=== PATIENT | female | born 1985 | race Caucasian/White ===

== ENCOUNTER → 2018-07-30 | Outpatient (CLI) | payer BC, MEDICAID, SELFPAY | LOC: M OUTALCOH 08:00 | PROVIDERS: ATTEND Psychiatry & Neurology Psychiatry | DX: Z13.9 Encounter for screening, unspecified (principal); F10.20 Alcohol dependence, uncomplicated ==

== ENCOUNTER 2018-08-10 08:01 | Outpatient (RCR) | payer MEDICAID, SELFPAY | END 2018-08-16 | LOC: M OUTALCOH 08:01 | PROVIDERS: ATTEND Psychiatry & Neurology Psychiatry | DX: F10.20 Alcohol dependence, uncomplicated (principal); F17.200 Nicotine dependence, unspecified, uncomplicated ==

== ENCOUNTER 2018-09-28 09:25 | Emergency (ER) | payer BC, OTHER ==
[~2018-09-28] VITALS: Ht 162.6 cm; Wt 62.3 kg
[2018-09-28 10:12] LABS: HEMATOCRIT 46.3 % (36.0-47.0); HEMOGLOBIN 15.7 g/dl (12.0-15.5); MEAN CORPUSCULAR HEMOGLOBIN 31.5 pg (27.0-33.0); MEAN CORPUSCULAR HGB CONC 33.9 g/dl (32.0-36.5); PLATELET COUNT, AUTOMATED 284 10^3/uL (150-450); RED BLOOD COUNT 4.98 10^6/uL (4.00-5.40)
[2018-09-28 10:30] LABS: AMPHETAMINES LEVEL URINE NEGATIVE (NEGATIVE); BARBITURATES URINE NEGATIVE (NEGATIVE); BENZODIAZEPINES URINE NEGATIVE (NEGATIVE); CANNABINOIDS URINE NEGATIVE (NEGATIVE); COCAINE METABOLITE URINE NEGATIVE (NEGATIVE); METHADONE URINE NEGATIVE (NEGATIVE); OPIATES URINE NEGATIVE (NEGATIVE); PHENCYCLIDINE URINE NEGATIVE (NEGATIVE)
[2018-09-28 11:05] LABS: HCG, SERUM QUALITATIVE NEGATIVE (NEGATIVE)
[2018-09-28 11:20] LABS: ALBUMIN 4.3 GM/DL (3.2-5.2); ALT/SGPT 38 U/L (12-78); BILIRUBIN,DIRECT 0.4 MG/DL (0.0-0.2); BILIRUBIN,TOTAL 1.6 MG/DL (0.2-1.0); BLOOD UREA NITROGEN 6 MG/DL (7-18); CALCIUM LEVEL 9.4 MG/DL (8.5-10.1); CARBON DIOXIDE LEVEL 34 MEQ/L (21-32); CHLORIDE LEVEL 104 MEQ/L (98-107); CREATININE FOR GFR 0.66 MG/DL (0.55-1.30); GLOMERULAR FILTRATION RATE > 60.0 (>60); GLUCOSE, FASTING 87 MG/DL (70-100); POTASSIUM SERUM 3.6 MEQ/L (3.5-5.1); SALICYLATE LEVEL < 1.7 MG/DL (5.0-30.0); SODIUM LEVEL 140 MEQ/L (136-145); TOTAL PROTEIN 7.7 GM/DL (6.4-8.2)
[2018-09-28 11:21] LABS: ACETAMINOPHEN LEVEL < 2.0 UG/ML (10.0-30.0); ETHYL ALCOHOL (ETHANOL) < 0.003 % (0.000-0.010)
[2018-09-28 13:29] VITALS: BP 131/73
== END 2018-09-28 13:31 | disposition home or self-care (01) ==
LOC: M ED 09:25
DX: F32.9 Major depressive disorder, single episode, unspecified (principal); F10.10 Alcohol abuse, uncomplicated; I10 Essential (primary) hypertension; Z98.84 Bariatric surgery status; Z88.7 Allergy status to serum and vaccine; Z88.6 Allergy status to analgesic agent; Z88.2 Allergy status to sulfonamides; Z88.8 Allergy status to other drugs, medicaments and biological substances
CPT/HCPCS: 80048; 80076; 80307; 84443; 84703; 85027; 99284; G0480

== ENCOUNTER → 2018-09-28 | Outpatient (CLI) | payer BC, OTHER | LOC: M OUTALCOH 07:58 | PROVIDERS: ATTEND Psychiatry & Neurology Psychiatry | DX: F10.20 Alcohol dependence, uncomplicated (principal) ==

== ENCOUNTER 2018-10-16 07:54 | Outpatient (RCR) | payer BC, OTHER | END 2018-10-17 | LOC: M OUTALCOH 07:54 | PROVIDERS: ATTEND Psychiatry & Neurology Psychiatry | DX: F10.20 Alcohol dependence, uncomplicated (principal); F17.200 Nicotine dependence, unspecified, uncomplicated | CPT/HCPCS: 90832; H0050 ==

== ENCOUNTER 2018-11-13 08:45 | Outpatient (RCR) | payer BC, OTHER | END 2018-11-16 | LOC: M OUTALCOH 08:45 | PROVIDERS: ATTEND Psychiatry & Neurology Psychiatry | DX: F10.20 Alcohol dependence, uncomplicated (principal); F17.200 Nicotine dependence, unspecified, uncomplicated ==

== ENCOUNTER 2019-01-05 07:30 | Inpatient (IN) | payer OTHER ==
[2019-01-05] VITALS (9 sets, daily range): BP systolic 108–152; BP diastolic 58–90
[~2019-01-05] VITALS: Ht 167.6 cm; Wt 66.4 kg
[2019-01-05] MEDS ORDERED: NS 1,000 ML IV ONE ×2 (07:45→11:45)
--- NOTE | 2019-01-05 07:55 | ECGEPIP ---
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
[2019-01-05 08:09] LABS: BASO # 0.1 10^3/uL (0.0-0.2); BASO % 0.8 % (0.0-1.0); HEMATOCRIT 42.3 % (36.0-47.0); HEMOGLOBIN 14.2 g/dl (12.0-15.5); LYMPH # 0.6 10^3/uL (1.5-5.0); LYMPH % 7.8 % (24.0-44.0); MEAN CORPUSCULAR HEMOGLOBIN 30.9 pg (27.0-33.0); MEAN CORPUSCULAR HGB CONC 33.6 g/dl (32.0-36.5); MEAN CORPUSCULAR VOLUME 92.2 fl (80.0-96.0); MONO # 0.2 10^3/uL (0.0-0.8); MONO % 2.8 % (0.0-5.0); NEUTROPHILS % 88.1 % (36.0-66.0); PLATELET COUNT, AUTOMATED 306 10^3/uL (150-450); RED BLOOD COUNT 4.59 10^6/uL (4.00-5.40)
[2019-01-05 08:27] LABS: HCG, SERUM QUALITATIVE NEGATIVE (NEGATIVE)
[2019-01-05 08:50] LABS: BLOOD UREA NITROGEN 10 MG/DL (7-18); CARBON DIOXIDE LEVEL 22 MEQ/L (21-32); CHLORIDE LEVEL 107 MEQ/L (98-107); CREATININE FOR GFR 0.97 MG/DL (0.55-1.30); GLOMERULAR FILTRATION RATE > 60.0 (>60); GLUCOSE, FASTING 136 MG/DL (70-100); POTASSIUM SERUM 4.4 MEQ/L (3.5-5.1); SODIUM LEVEL 143 MEQ/L (136-145)
[2019-01-05 08:51] LABS: ACETAMINOPHEN LEVEL < 2.0 UG/ML (10.0-30.0); ALBUMIN 3.9 GM/DL (3.2-5.2); ALT/SGPT 25 U/L (12-78); BILIRUBIN,DIRECT 0.2 MG/DL (0.0-0.2); CALCIUM LEVEL 8.9 MG/DL (8.5-10.1); CPK CREATINE PHOSPHOKINASE 1445 U/L (26-192); SALICYLATE LEVEL 1.9 MG/DL (5.0-30.0); TOTAL PROTEIN 7.3 GM/DL (6.4-8.2)
[2019-01-05] MEDS ORDERED: TRAZ150T90 PO (09:20)
[2019-01-05] MEDS ORDERED: ACET1TAB55 PO (09:20)
[2019-01-05] MEDS ORDERED: PARO20TA3 PO (09:20)
[2019-01-05] MEDS ORDERED: LIDOCAINE 2% W/EPIN INJ 20ML **PRES FREE INJ ONE (10:45)
[2019-01-05] MEDS ORDERED: THIAMINE HCL 200 MG/2 ML VIAL (J3411) IM ONE (12:00)
[2019-01-05 12:10] LABS: MAGNESIUM LEVEL 1.9 MG/DL (1.8-2.4)
--- NOTE | 2019-01-05 12:15 | REP ---
CT brain: 01/05/2019. Indication: Stroke. Comparison: None. Technique: Unenhanced axial CT images of the brain were obtained from skull base to vertex. Findings: There is no acute intracranial hemorrhage, acute cortical infarction, mass effect or hydrocephalous. Impression: There is no acute intracranial process. Electronically Signed by Lavell Brown DO 01/05/2019 12:06 P
[2019-01-05] MEDS ORDERED: DISU250T PO (12:17)
[2019-01-05] MEDS ORDERED: CLON0.2T PO (12:17)
[2019-01-05] MEDS ORDERED: [UNRECOGNIZED DRUG - CODE] PO (12:17)
[2019-01-05] MEDS ORDERED: AMOX500C PO (12:17)
[2019-01-05] MEDS ORDERED: PERI12LIQ PO (12:17)
[2019-01-05] MEDS ORDERED: ADACEL/BOOSTRIX VACCINE (DIPHTH/PERTUSS/ACELL/TETANUS)0.5ML SYR (90715) IM ONE (12:30)
[2019-01-05] MEDS ORDERED: LORazepam 2 MG/ML VIAL (J2060) IV STA ×3 (12:34→16:56)
[2019-01-05] MEDS: NS 1,000 ML IV SCH ×2 (14:08→21:00)
--- NOTE | 2019-01-05 14:52 | HPEPDOC ---
[facility] Medical History & Physical Date of Admission Jan 05, 2019 Date of Service: Jan 05, 2019 Attending Physician: ADALBERTO ARBOLEDA MD History and Physical CHIEF COMPLAINT: Drug overdose HISTORY OF PRESENT ILLNESS: 33-year-old female with past medical history of anxiety, depression, IV drug use (heroin), alcohol abuse, is brought from home after overdosing on trazodone. Patient was alone overnight, found by family in the morning, currently very confused and slow to answer in the ED, unable to p rovide any useful information. History and information obtained from parents at bedside, who report that patient has had thoughts of suicide in the past, but no prior attempts, they found her altered and lethargic at home and noticed her trazodone bottle was missing pills. Of note, patient is also on Paxil, no pallor counting her pills in the ED, she has been taking her Paxil. As per parents patient was also binge drinking over the past couple nights, was sober for months prior to that, has been prescribed Antabuse as well. In the ED, patient is found to be febrile, hyperreflexic, mildly tachycardic and initially hypertensive. Poison control was contacted, recommend IV fluids, benzodiazepines and cyproheptadine if worsening. Patient also cut her right wrist, reportedly superficial and sutured by ED staff. PAST MEDICAL HISTORY: 1. Polysubstance abuse. 2. Anxiety/Depression. 3. Suicide attempt. PAST SURGICAL HISTORY: 1. Gastric bypass. SOCIAL HISTORY: Current smoker. Drinks alcohol. History of his substance use, heroin, and others unknown to relatives FAMILY HISTORY: No family history of cancer or heart disease ALLERGIES: Please see below. HOME MEDICATIONS: Please see below. PHYSICAL EXAMINATION: VITAL SIGNS: Please see below. GENERAL: No distress HEENT: Normocephalic, atraumatic, dry mucous membranes NECK: Supple CARDIOVASCULAR EXAMINATION: S1, S2, no murmurs RESPIRATORY EXAMINATION: Clear to auscultation, no wheezing ABDOMINAL EXAMINATION: Soft, nontender, nondistended, positive bowel sounds EXTREMITIES: Range of motion intact SKIN: No rash NEUROLOGICAL EXAMINATION: no focal deficits, hyperreflexic PSYCHIATRIC EXAMINATION: Lethargic LABORATORY DATA: See below. IMAGING: CT head negative for acute pathology MICROBIOLOGY: Please see below. ASSESSMENT: 33-year-old female with history of IV drug use, anxiety, depression, alcohol abuse, overdosed on trazodone is being admitted for serotonin syndrome. . PLAN: 1. Serotonin syndrome. Patient on Paxil and took possibly 15-20 tabs of trazodone. Hyperreflexic on examination, afebrile, mildly tachycardic initially hypertensive; concern is high for serotonin syndrome, poison control was contacted, recommend benzodiazepines for symptom control with cyproheptadine if worsening. QTC 456, monitor in the ICU setting. Gave Ativan 2 mg IV 1 in the ED, continue Ativan when necessary. Cyproheptadine 8 mg 3 times a day, IV fluids 2. Alcohol abuse Binge drinking over the past 48 hours, alcohol level elevated, [facility] protocol. Multivitamins, folic acid, thiamine 3. Anxiety/depression. Suicide attempt, will consult psychiatry when medically stable. DVT prophylaxis: Heparin subcutaneous GI prophylaxis: Not needed Vital Signs Vital Signs Date Time Temp Pulse Resp B/P (MAP) Pulse Ox O2 Delivery O2 Flow Rate FiO2 01/05/19 14:15 91 16 136/70 (92) 98 01/05/19 12:33 100.3 01/05/19 09:49 Room Air Laboratory Data Labs 24H Laboratory Tests 2 01/05/19 07:53: Immature Granulocyte % (Auto) 0.5, Neutrophils (%) (Auto) 88.1H, Lymphocytes (%) (Auto) 7.8L, Monocytes (%) (Auto) 2.8, Eosinophils (%) (Auto) 0.0, Basophils (%) (Auto) 0.8, Neutrophils # (Auto) 7.0, Lymphocytes # (Auto) 0.6L, Monocytes # (Auto) 0.2, Eosinophils # (Auto) 0.0, Basophils # (Auto) 0.1, Nucleated Red Blood Cells % (auto) 0.0, Anion Gap 14, Glomerular Filtration Rate > 60.0, Calcium Level 8.9, Magnesium Level 1.9, Total Bilirubin 1.0, Direct Bilirubin 0.2, Aspartate Amino Transf (AST/SGOT) 51H, Alanine Aminotransferase (ALT/SGPT) 25, Alkaline Phosphatase 73, Total Creatine Kinase 1445H, Total Protein 7.3, Albumin 3.9, Albumin/Globulin Ratio 1.15, Thyroid Stimulating Hormone (TSH) 1.440, Human Chorionic Gonadotropin, Qual NEGATIVE, Salicylates Level 1.9L, Acetaminophen Level < 2.0L, Ethyl Alcohol Level 0.020H 01/05/19 08:52: Bedside Glucose (Misc Panel) 112H CBC/BMP Laboratory Tests 01/05/19 07:53 Home Medications Scheduled Amoxicillin (Amoxicillin) 500 Mg Capsule, 500 MG PO TID FILLED 12/30/18 FOR 10 DAYS Chlorhexidine Gluconate (Chlorhexidine Gluconate) 473 Ml Mouthwash, 15 ML PO BID FILLED 12/30/18 FOR 7 DAYS Clonidine HCl (Clonidine HCl) 0.2 Mg Tablet, 0.2 MG PO QHS Disulfiram (Disulfiram) 250 Mg Tablet, 250 MG PO DAILY Norethindrone-Ethinyl Estrad (Pirmella 7-7-7-28 Tablet) 1 Each Tablet, 1 TAB PO DAILY Paroxetine HCl (Paroxetine HCl) 20 Mg Tablet, 20 MG PO DAILY Trazodone HCl (Trazodone HCl) 150 Mg Tablet, 150 MG PO QHS Scheduled PRN Acetaminophen (Acetaminophen) 325 Mg Tablet, 650 MG PO Q6H PRN for PAIN Allergies Coded Allergies: Influenza Virus Vaccines (Verified Allergy, Unknown, 09/28/18) Sulfa (Sulfonamide Antibiotics) (Verified Allergy, Unknown, 09/28/18) oseltamivir (Verified Adverse Reaction, Intermediate, liver failure, 01/05/19) NSAIDS (Non-Steroidal Anti-Inflamma (Verified Adverse Reaction, Mild, gastric bypass, 09/28/18) A-FIB/CHADSVASC A-FIB History Current/History of A-Fib/PAF?: No ADALBERTO ARBOLEDA MD Jan 05, 2019 14:52
[2019-01-05] MEDS ORDERED: LORazepam 2 MG/ML VIAL (J2060) As Ordered ONE (17:12)
[2019-01-05] MEDS: THIAMINE 100 MG TAB PO SCH (21:46)
[2019-01-05] MEDS: CHLORHEXIDINE GLUCONATE 0.12 % 15ML UDC (PERIDEX ORAL RINSE) SSP SCH (21:46)
[2019-01-05] MEDS: HEPARIN SOD (PORCINE) 5000 UNITS/ML VIAL SC SCH (21:46)
[2019-01-05] MEDS: CYPROHEPTADINE 4 MG TAB GT SCH (22:02)
[2019-01-06] VITALS (18 sets, daily range): BP systolic 111–157; BP diastolic 65–104
[2019-01-06 00:10] LABS: AMPHETAMINES LEVEL URINE NEGATIVE (NEGATIVE); BARBITURATES URINE NEGATIVE (NEGATIVE); BENZODIAZEPINES URINE NEGATIVE (NEGATIVE); CANNABINOIDS URINE NEGATIVE (NEGATIVE); COCAINE METABOLITE URINE NEGATIVE (NEGATIVE); METHADONE URINE NEGATIVE (NEGATIVE); OPIATES URINE NEGATIVE (NEGATIVE); PHENCYCLIDINE URINE NEGATIVE (NEGATIVE)
[2019-01-06] MEDS: NS 1,000 ML IV SCH ×2 (04:13→09:04)
[2019-01-06 05:21] LABS: HEMATOCRIT 35.1 % (36.0-47.0); MEAN CORPUSCULAR HEMOGLOBIN 30.3 pg (27.0-33.0); MEAN CORPUSCULAR HGB CONC 32.8 g/dl (32.0-36.5); MEAN CORPUSCULAR VOLUME 92.6 fl (80.0-96.0); PLATELET COUNT, AUTOMATED 211 10^3/uL (150-450); RED BLOOD COUNT 3.79 10^6/uL (4.00-5.40); WHITE BLOOD COUNT 6.3 10^3/uL (4.0-10.0)
[2019-01-06 05:25] LABS: HEMOGLOBIN 11.5 g/dl (12.0-15.5)
[2019-01-06 05:48] LABS: ALBUMIN 2.7 GM/DL (3.2-5.2); ALT/SGPT 22 U/L (12-78); BILIRUBIN,TOTAL 1.2 MG/DL (0.2-1.0); BLOOD UREA NITROGEN 10 MG/DL (7-18); CALCIUM LEVEL 8.2 MG/DL (8.5-10.1); CARBON DIOXIDE LEVEL 27 MEQ/L (21-32); CHLORIDE LEVEL 115 MEQ/L (98-107); CREATININE FOR GFR 0.78 MG/DL (0.55-1.30); GLOMERULAR FILTRATION RATE > 60.0 (>60); GLUCOSE, FASTING 90 MG/DL (70-100); MAGNESIUM LEVEL 1.9 MG/DL (1.8-2.4); POTASSIUM SERUM 3.9 MEQ/L (3.5-5.1); SODIUM LEVEL 146 MEQ/L (136-145); TOTAL PROTEIN 5.6 GM/DL (6.4-8.2)
[2019-01-06] MEDS: CYPROHEPTADINE 4 MG TAB GT SCH (05:50)
[2019-01-06] MEDS: HEPARIN SOD (PORCINE) 5000 UNITS/ML VIAL SC SCH ×3 (05:50→21:22)
[2019-01-06] MEDS ORDERED: LORazepam 2 MG/ML VIAL (J2060) IV STA ×2 (08:00→21:54)
[2019-01-06] MEDS ORDERED: LORazepam 2 MG TAB PO ONE (09:00)
[2019-01-06] MEDS: MULTIVITAMINS/MINERALS THERAP 1 TAB PO SCH (09:03)
[2019-01-06] MEDS: THIAMINE 100 MG TAB PO SCH ×2 (09:03→20:01)
[2019-01-06] MEDS: FOLIC ACID 1 MG TAB PO SCH (09:03)
[2019-01-06] MEDS: CHLORHEXIDINE GLUCONATE 0.12 % 15ML UDC (PERIDEX ORAL RINSE) SSP SCH ×2 (09:04→20:00)
[2019-01-06] MEDS ORDERED: MAGIC MOUTHWASH SUSPENSION BTL SSP PRN (10:00)
--- NOTE | 2019-01-06 11:52 | IPNPDOC ---
Date Seen The patient was seen on 01/06/19. Progress Note HISTORY OF PRESENT ILLNESS: 33-year-old female with past medical history of anxiety, depression, IV drug use (heroin), alcohol abuse, is brought from home after overdosing on trazodone. Patient was alone overnight, found by family in the morning, currently very confused and slow to answer in the ED, unable to provide any useful information. History and information obtained from parents at bedside, who report that patient has had thoughts of suicide in the past, but no prior attempts, they found her altered and lethargic at home and noticed her trazodone bottle was missing pills. Of note, patient is also on Paxil, no pallor counting her pills in the ED, she has been taking her Paxil. As per parents patient was also binge drinking over the past couple nights, was sober for months prior to that, has been prescribed Antabuse as well. In the ED, patient is found to be febrile, hyperreflexic, mildly tachycardic and initially hypertensive. Poison control was contacted, recommend IV fluids, benzodiazepines and cyproheptadine if worsening. Patient also cut her right wrist, reportedly superficial and sutured by ED staff. 01/06/2019 Patient minimally febrile overnight, seen in the morning. Alert and oriented 3, reporting mild pain at the wrist. Otherwise, without any complex at this time. She denies any shaking, sweating, agitation at this time. She wishes to eat, was able to shower herself in the morning. PHYSICAL EXAMINATION: VITAL SIGNS: Please see below. GENERAL: No distress HEENT: Normocephalic, atraumatic, dry mucous membranes NECK: Supple CARDIOVASCULAR EXAMINATION: S1, S2, no murmurs RESPIRATORY EXAMINATION: Clear to auscultation, no wheezing ABDOMINAL EXAMINATION: Soft, nontender, nondistended, positive bowel sounds EXTREMITIES: Range of motion intact SKIN: No rash NEUROLOGICAL EXAMINATION: Alert and oriented 3, no focal deficits PSYCHIATRIC EXAMINATION: Lethargic LABORATORY DATA: See below. IMAGING: CT head negative for acute pathology MICROBIOLOGY: Please see below. ASSESSMENT: 33-year-old female with history of IV drug use, anxiety, depression, alcohol abuse, overdosed on trazodone is being admitted for serotonin syndrome. PLAN: 1. Serotonin syndrome. Patient on Paxil and took possibly 15-20 tabs of trazodone. Treated with as needed IV Ativan, doing well in the morning, will discontinue cyproheptadine, remains on as needed Ativan for [facility] protocol. We'll consult psychiatry for suicide attempt as patient will likely be medically cleared by tomorrow. 2. Alcohol abuse Binge drinking over the past 48 hours, alcohol level elevated upon presentation, [facility] protocol. Multivitamins, folic acid, thiamine 3. Anxiety/depression. Suicide attempt, psychiatry consulted. DVT prophylaxis: Heparin subcutaneous GI prophylaxis: Not needed VS, I&O, 24H, Fishbone Vital Signs/I&O Vital Signs Date Time Temp Pulse Resp B/P (MAP) Pulse Ox O2 Delivery O2 Flow Rate FiO2 01/06/19 08:00 98.9 69 20 142/100 (114) 97 Room Air I&O- Last 24 Hours up to 6 AM 01/06/19 06:00 Intake Total 4325 ml Output Total 545 ml Balance 3780 ml Laboratory Data 24H LABS Laboratory Tests 2 01/05/19 16:12: Acetaminophen Level < 2.0L 01/05/19 23:10: Urine Opiates Screen NEGATIVE, Urine Methadone Screen NEGATIVE, Urine Barbiturates Screen NEGATIVE, Urine Phencyclidine Screen NEGATIVE, Urine Amphetamines Screen NEGATIVE, Urine Benzodiazepines Screen NEGATIVE, Urine Cocaine Metabolite Screen NEGATIVE, Urine Cannabinoids Screen NEGATIVE 01/06/19 05:02: Nucleated Red Blood Cells % (auto) 0.0, Anion Gap 4L, Glomerular Filtration Rate > 60.0, Calcium Level 8.2L, Magnesium Level 1.9, Total Bilirubin 1.2H, Aspartate Amino Transf (AST/SGOT) 41H, Alanine Aminotransferase (ALT/SGPT) 22, Alkaline Phosphatase 53, Total Protein 5.6#L, Albumin 2.7#L, Albumin/Globulin Ratio 0.93L CBC/BMP Laboratory Tests 01/06/19 05:02 ADALBERTO ARBOLEDA MD Jan 06, 2019 11:52
[2019-01-06] MEDS: LORazepam 2 MG TAB PO PRN ×3 (13:11→19:57)
[2019-01-06] MEDS: NICOTINE 14 MG/24 HR TRANSDERMAL TD SCH (14:45)
--- NOTE | 2019-01-06 15:27 | ECHO ---
DATE OF PROCEDURE: 01/05/2019 DATE OF : 1985 INPATIENT: ICU, Room 60808 REFERRING PHYSICIAN: Dr. Esther Billingsley INDICATION: Abnormal EKG. Cardiac dysrhythmia. MEASUREMENTS: 2-D Measurements: RV: 3.4 cm LV: 4.1 cm Septum: 1.0 cm Posterior wall: 0.9 cm Aortic root: 3.2 cm LA: 3.4 cm LVEF: 75% Doppler Measurements: AV: 1.6 m/s LVOT: 1.0 m/s LVOT diameter: 2.0 cm MV: E: 87, A: 68, EA ratio: 1.3 Early mitral deceleration time: 183 ms E prime: 10, A prime: 13, E/E prime ratio: 8.47 PV: 1.0 m/s Pulmonary artery acceleration time: 137 ms PASP: 17 mmHg IVC: 1.2 cm COMMENTS: Normal sinus rhythm without intraventricular conduction disturbance. M-mode and two-dimensional echocardiography was performed with pulsed, continuous wave, color flow and tissue Doppler studies. Normal left ventricular size, wall thickness and hyperkinetic wall motion. Normal left atrial size and Doppler assessment of LV diastolic function and estimated mean left atrial pressure. Normal right heart chamber sizes and motion and estimated pulmonary arterial pressure. Normal IVC size and collapse against an elevated central venous pressure. Normal appearing and functioning valvular structures. Normal aortic diameters. No apparent intracardiac mass or pericardial effusion.
[2019-01-06 16:32] LABS: CLOSTRIDIUM DIFFICILE PCR POSITIVE (NEGATIVE)
[2019-01-06] MEDS: FLUCONAZOLE 100 MG TAB PO SCH (18:12)
[2019-01-06] MEDS: VANCOMYCIN ORAL SOL 250MG/5ML ORAL SYRINGE PO SCH ×2 (19:57→23:05)
[2019-01-06] MEDS: PIRMELLA PO SCH (21:21)
[2019-01-07] VITALS (15 sets, daily range): BP systolic 132–147; BP diastolic 77–107
[2019-01-07] MEDS ORDERED: ACETAMINOPHEN TAB 650MG DOSE (2X325MG) PO PRN (02:45)
[2019-01-07] MEDS: HEPARIN SOD (PORCINE) 5000 UNITS/ML VIAL SC SCH ×3 (04:50→22:00)
[2019-01-07] MEDS: LORazepam 2 MG TAB PO PRN ×4 (04:50→21:05)
[2019-01-07] MEDS: VANCOMYCIN ORAL SOL 250MG/5ML ORAL SYRINGE PO SCH ×3 (05:06→17:08)
[2019-01-07 05:15] LABS: HEMATOCRIT 38.6 % (36.0-47.0); HEMOGLOBIN 12.4 g/dl (12.0-15.5); MEAN CORPUSCULAR HEMOGLOBIN 29.9 pg (27.0-33.0); MEAN CORPUSCULAR HGB CONC 32.1 g/dl (32.0-36.5); PLATELET COUNT, AUTOMATED 218 10^3/uL (150-450); RED BLOOD COUNT 4.15 10^6/uL (4.00-5.40); WHITE BLOOD COUNT 5.1 10^3/uL (4.0-10.0)
[2019-01-07 05:37] LABS: BLOOD UREA NITROGEN 5 MG/DL (7-18); CALCIUM LEVEL 8.4 MG/DL (8.5-10.1); CARBON DIOXIDE LEVEL 29 MEQ/L (21-32); CHLORIDE LEVEL 110 MEQ/L (98-107); CREATININE FOR GFR 0.67 MG/DL (0.55-1.30); GLOMERULAR FILTRATION RATE > 60.0 (>60); GLUCOSE, FASTING 79 MG/DL (70-100); PHOSPHORUS LEVEL 3.2 MG/DL (2.5-4.9); POTASSIUM SERUM 3.7 MEQ/L (3.5-5.1); SODIUM LEVEL 145 MEQ/L (136-145)
[2019-01-07] MEDS: CHLORHEXIDINE GLUCONATE 0.12 % 15ML UDC (PERIDEX ORAL RINSE) SSP SCH ×2 (08:33→20:47)
[2019-01-07] MEDS: FLUCONAZOLE 100 MG TAB PO SCH (08:33)
[2019-01-07] MEDS: FOLIC ACID 1 MG TAB PO SCH (08:34)
[2019-01-07] MEDS: NICOTINE 14 MG/24 HR TRANSDERMAL TD SCH (08:34)
[2019-01-07] MEDS: MULTIVITAMINS/MINERALS THERAP 1 TAB PO SCH (08:34)
[2019-01-07] MEDS: THIAMINE 100 MG TAB PO SCH ×2 (08:34→20:47)
[2019-01-07] MEDS ORDERED: POTASSIUM CHLORIDE 10 MEQ SR TABLET PO ONE (09:00)
[2019-01-07] MEDS ORDERED: LORazepam 2 MG/ML VIAL (J2060) IV ONE (09:15)
--- NOTE | 2019-01-07 11:40 | MHCRPDOC ---
[facility] Consultation Consultation New Patient Princess De La Rosa MRN: N/A Date of : N/A Date of Service: 01/07/2019 Chief Complaint Consultation for safety after overdose. History of Present Illness The patient, a 33-year-old woman, who recently was discharged from my addiction clinic where she was treated for alcoholism, presents after a significant overdose. The patient reports that she became increasingly depressed, stopped her Paxil and felt worse and after her boyfriend left for a week to go to a hunting trip she became increasingly depressed, relapsed on alcohol after she'd run out of disulfiram and began to contemplate suicide. She reports cutting her wrists and taking an overdose of trazodone in an attempt to kill herself. The patient reports that she has had increasing depression with hopelessness, loss of interest, insomnia. Recently started with [facility] for medication management. Psychosocial information is taken from my previous assessment and updated as appropriate. Review Of Systems Depression: As above. Anxiety: No change. Yoana: No change. Psychotic: No change. Trauma: No change. Borderline: No change. Past Psychiatric History Patient has no history of psychiatric admissions and is on Paxil, trazodone, which she has been non-compliant with. She's followed by [facility].The patient reports having a history of a suicide attempt with heroin in 2006 and some cutting behaviors when she was younger. Allergies Please see below. Family Psychiatric History The patient denies/is unaware any history of mental health history including addictions and suicide. Social History Patient currently lives with her parents who are supportive of her. She has a associate's degree, is unemployed, never with no children, no history of legal problems, denies any current trauma or abuse. Substance Abuse History The patient has a history of severe alcoholism with a binge drinking style as well as significant tobacco use. She reports using heroin in the past but denies consistent use of other drugs such as cocaine, stimulants and hallucinogens. Medical History History of asthma. Mental Status Examination General: Well dressed with good hygiene Speech: Spontaneous and fluid Thought processes: Linear and logical MSK: Smooth and coordinated gait, no signs of tremors or involuntary orofacial movements Thought content: Remorse Abstract reasoning, and computation: Intact Description of associations: Intact Description of abnormal or psychotic thoughts: Denies any suicidal or homicidal ideation. Denies any auditory or visual hallucinations. Does not appear to be responding to internal stimuli. Does not appear to be endorsing any bizarre or paranoid ideation. Judgment: fair Insight: fair Orientation: Alert and orientated 3 Cognition: Grossly normal Recent and remote memory: Intact Attention span and concentration: Mildly impaired Fund of knowledge: Adequate Mood: "okay" Affect: Dysthymic with a constricted range Diagnoses Unspecified depressive disorder. Alcohol use disorder, severe Tobacco use disorder, severe. Assessment and Plan Recommend inpatient admission, 9.39. Legals filled out. Will need another day of observation due to trazodone overdose and mild confusional state. Needs to be ambulatory before coming up. Continue one-to-one sitter. Disposition Inpatient psych. Time Spent 60 minutes. Vital Signs Vital Signs Date Time Temp Pulse Resp B/P (MAP) Pulse Ox O2 Delivery O2 Flow Rate FiO2 01/07/19 11:22 103 146/103 (117) 98 01/07/19 08:00 97.7 18 Room Air Laboratory Data 24H Labs Laboratory Tests 2 01/06/19 14:51: Clostridium difficile [id number] PRESUMPTIVE NEGATIVE, Clostridium difficile Toxin (PCR) POSITIVEA 01/07/19 04:43: Nucleated Red Blood Cells % (auto) 0.0, Anion Gap 6L, Glomerular Filtration Rate > 60.0, Calcium Level 8.4L, Phosphorus Level 3.2 Home Medications Current Medications Current Medications Medications (Trade) Dose Ordered Sig/Nette Route PRN Reason Start Time Stop Time Status Last Admin Dose Admin Acetaminophen (Tylenol Tab) 650 mg Q6HP PRN PO PAIN / FEVER 01/07/19 02:45 Chlorhexidine Gluconate (Peridex Oral Rinse) 15 ml BID SSP 01/05/19 21:00 01/07/19 08:33 Cyproheptadine HCl (Periactin) 8 mg Q8H GT 01/05/19 22:00 01/06/19 11:53 DC 01/06/19 05:50 Fluconazole (Diflucan) 100 mg DAILY PO 01/06/19 17:30 01/07/19 08:33 Folic Acid (Folic Acid) 1 mg DAILY PO 01/06/19 09:00 01/07/19 08:34 Heparin Sodium (Porcine) (Heparin) 5,000 units Q8H SC 01/05/19 22:00 01/07/19 04:50 Home Med (Med Rec Complete!) ASDIRECTED XX 01/05/19 12:30 01/05/19 12:22 DC Lactated Ringer's 1,000 ml @ 100 mls/hr Q10H IV 01/07/19 12:00 Lidocaine/ Diphenhydr/Alum/ Mg/Simeth (Magic Mouthwash) 5ML TIDP PRN SSP DISCOMFORT 01/06/19 10:00 01/06/19 17:25 DC Lorazepam (Ativan) 2 mg ASDIRECTED PRN PO SEE PROTOCOL 01/05/19 14:30 01/07/19 04:50 Lorazepam (Ativan) 2 mg STAT STAT IV 01/05/19 12:34 01/05/19 12:35 DC 01/05/19 12:42 Lorazepam (Ativan) 2 mg STAT STAT IV 01/05/19 15:26 01/05/19 15:28 DC 01/05/19 15:53 Lorazepam (Ativan) 2 mg STAT STAT IV 01/05/19 16:56 01/05/19 16:59 DC 01/05/19 17:15 Lorazepam (Ativan) 2 mg STAT STAT IV 01/06/19 08:00 01/06/19 08:01 Cancel Lorazepam (Ativan) 2 mg STAT STAT IV 01/06/19 21:54 01/06/19 21:56 DC 01/06/19 22:03 Miscellaneous (Unresolved Patient Own Med Order) SEE LABEL COMMENTS DAILY XX 01/06/19 09:00 01/06/19 21:56 DC 01/06/19 09:00 Multivitamins (Theragram-M) 1 tab DAILY PO 01/06/19 09:00 01/07/19 08:34 Nicotine (Nicoderm Cq 14mg) 1 patch DAILY TD 01/06/19 09:00 01/07/19 08:34 Patient Own Medication (Patient'S Own Med) NORETHIDRONE-ETHINYL eSTRADIOL (pRIMELLA 7-7-7) SAMAN... DAILY@2100 PO 01/06/19 21:00 01/06/19 21:21 Sodium Chloride 1,000 ml @ 90 mls/hr Q11H7M IV 01/05/19 11:45 01/06/19 17:23 DC 01/06/19 09:04 Thiamine HCl (Thiamine HCl) 100 mg BID PO 01/05/19 21:00 01/08/19 20:59 01/07/19 08:34 Vancomycin HCl (First-Vancomycin 50(Firvanq)- 250mg/5ml) 125 mg Q6H PO 01/06/19 18:00 01/07/19 05:06 Scheduled Amoxicillin (Amoxicillin) 500 Mg Capsule, 500 MG PO TID, (Reported) FILLED 12/30/18 FOR 10 DAYS Chlorhexidine Gluconate (Chlorhexidine Gluconate) 473 Ml Mouthwash, 15 ML PO BID, (Reported) FILLED 12/30/18 FOR 7 DAYS Clonidine HCl (Clonidine HCl) 0.2 Mg Tablet, 0.2 MG PO QHS, (Reported) Disulfiram (Disulfiram) 250 Mg Tablet, 250 MG PO DAILY, (Reported) Norethindrone-Ethinyl Estrad (Pirmella 7-7-7-28 Tablet) 1 Each Tablet, 1 TAB PO DAILY, (Reported) Paroxetine HCl (Paroxetine HCl) 20 Mg Tablet, 20 MG PO DAILY, (Reported) Trazodone HCl (Trazodone HCl) 150 Mg Tablet, 150 MG PO QHS, (Reported) Scheduled PRN Acetaminophen (Acetaminophen) 325 Mg Tablet, 650 MG PO Q6H PRN for PAIN, (Reported) Allergies Coded Allergies: Influenza Virus Vaccines (Verified Allergy, Unknown, 09/28/18) Sulfa (Sulfonamide Antibiotics) (Verified Allergy, Unknown, 09/28/18) sertraline (Verified Adverse Reaction, Severe, suicidal ideation and nightmares, 01/08/19) oseltamivir (Verified Adverse Reaction, Intermediate, liver failure, 01/05/19) NSAIDS (Non-Steroidal Anti-Inflamma (Verified Adverse Reaction, Mild, gastric bypass, 09/28/18) RAJINDER ARRIAGA DO Jan 07, 2019 11:40
[2019-01-07] MEDS: LR 1,000 ML IV SCH ×2 (11:55→21:06)
--- NOTE | 2019-01-07 18:07 | IPNPDOC ---
Date Seen The patient was seen on 01/07/19. Progress Note 33-year-old female with past medical history of anxiety, depression, IV drug use (heroin), alcohol abuse, is brought from home after overdosing on trazodone. Patient was alone overnight, found by family in the morning, currently very confused and slow to answer in the ED, unable to provide any useful information. History and information obtained from parents at bedside, who report that joss ward has had thoughts of suicide in the past, but no prior attempts, they found her altered and lethargic at home and noticed her trazodone bottle was missing pills. Of note, patient is also on Paxil, no pallor counting her pills in the ED, she has been taking her Paxil. As per parents patient was also binge drinking over the past couple nights, was sober for months prior to that, has been prescribed Antabuse as well. In the ED, patient is found to be febrile, hyperreflexic, mildly tachycardic and initially hypertensive. Poison control was contacted, recommend IV fluids, benzodiazepines and cyproheptadine if worsening. Patient also cut her right wrist, reportedly superficial and sutured by ED s tafakbar. 01/06/2019 Patient minimally febrile overnight, seen in the morning. Alert and oriented 3, reporting mild pain at the wrist. Otherwise, without any complex at this time. She denies any shaking, sweating, agitation at this time. She wishes to eat, was able to shower herself in the morning. 01/07/2019 Patient much more alert and awake today, back to her baseline, without any complaints at this time. She required an additional dose of IV Ativan overnight. Patient is tolerating diet, found to be C. difficile positive, evaluated by psychiatry, possible transfer to inpatient mental health unit tomorrow. PHYSICAL EXAMINATION: VITAL SIGNS: Please see below. GENERAL: No distress HEENT: Normocephalic, atraumatic, dry mucous membranes NECK: Supple CARDIOVASCULAR EXAMINATION: S1, S2, no murmurs RESPIRATORY EXAMINATION: Clear to auscultation, no wheezing ABDOMINAL EXAMINATION: Soft, nontender, nondistended, positive bowel sounds EXTREMITIES: Range of motion intact SKIN: No rash NEUROLOGICAL EXAMINATION: Alert and oriented 3, no focal deficits PSYCHIATRIC EXAMINATION: Lethargic LABORATORY DATA: See below. IMAGING: CT head negative for acute pathology MICROBIOLOGY: Please see below. ASSESSMENT: year-old female with history of IV drug use, anxiety, depression, alcohol abuse, overdosed on trazodone is being admitted for serotonin syndrome. PLAN: 1. Serotonin syndrome. Patient on Paxil and took possibly 15-20 tabs of trazodone. Treated with as needed IV Ativan, resolved. Evaluate by psychiatry, will be going to inpatient mental health unit when medically stable, likely tomorrow. 2. Alcohol abuse Binge drinking over the past 48 hours, alcohol level elevated upon presentation, requiring multiple doses of benzodiazepines as per [facility] protocol. Multivitamins, folic acid, thiamine 3. Anxiety/depression. Suicide attempt, psychiatry consulted. 4. C. difficile Was taking outpatient antibiotics after tooth extraction, started on vancomycin oral 125 mg every 6 hours. DVT prophylaxis: Heparin subcutaneous GI prophylaxis: Not needed VS, I&O, 24H, Fishbone Vital Signs/I&O Vital Signs Date Time Temp Pulse Resp B/P (MAP) Pulse Ox O2 Delivery O2 Flow Rate FiO2 01/07/19 15:15 123 147/107 01/07/19 15:12 98 Room Air 01/07/19 08:00 97.7 18 I&O- Last 24 Hours up to 6 AM 01/07/19 06:00 Intake Total 3560 ml Output Total 3600 ml Balance -40 ml Laboratory Data 24H LABS Laboratory Tests 2 01/07/19 04:43: Nucleated Red Blood Cells % (auto) 0.0, Anion Gap 6L, Glomerular Filtration Rate > 60.0, Calcium Level 8.4L, Phosphorus Level 3.2 CBC/BMP Laboratory Tests 01/07/19 04:43 ADALBERTO ARBOLEDA MD Jan 07, 2019 18:07
[2019-01-07] MEDS: PIRMELLA PO SCH (20:47)
[2019-01-08] VITALS: BP 147/108
[2019-01-08] MEDS: VANCOMYCIN ORAL SOL 250MG/5ML ORAL SYRINGE PO SCH ×3 (00:32→12:11)
[2019-01-08] MEDS: LORazepam 2 MG TAB PO PRN ×2 (00:36→13:00)
[2019-01-08 02:00] VITALS: BP 144/99
[2019-01-08 02:40] VITALS: BP 144/99
[2019-01-08] MEDS ORDERED: diazePAM 2 MG TAB PO ONE (03:15)
[2019-01-08 04:00] VITALS: BP 135/94
[2019-01-08] MEDS ORDERED: ONDANSETRON 4MG/2ML VIAL (J2405) As Ordered ONE (04:08)
[2019-01-08] MEDS ORDERED: ONDANSETRON 4MG/2ML VIAL (J2405) IV ONE (04:15)
[2019-01-08 05:02] LABS: HEMATOCRIT 36.9 % (36.0-47.0); HEMOGLOBIN 12.4 g/dl (12.0-15.5); MEAN CORPUSCULAR HEMOGLOBIN 30.3 pg (27.0-33.0); MEAN CORPUSCULAR HGB CONC 33.6 g/dl (32.0-36.5); MEAN CORPUSCULAR VOLUME 90.2 fl (80.0-96.0); PLATELET COUNT, AUTOMATED 249 10^3/uL (150-450); RED BLOOD COUNT 4.09 10^6/uL (4.00-5.40); WHITE BLOOD COUNT 5.5 10^3/uL (4.0-10.0)
[2019-01-08 05:17] LABS: BLOOD UREA NITROGEN 7 MG/DL (7-18); CALCIUM LEVEL 8.5 MG/DL (8.5-10.1); CARBON DIOXIDE LEVEL 27 MEQ/L (21-32); CHLORIDE LEVEL 109 MEQ/L (98-107); CREATININE FOR GFR 0.76 MG/DL (0.55-1.30); GLOMERULAR FILTRATION RATE > 60.0 (>60); GLUCOSE, FASTING 84 MG/DL (70-100); MAGNESIUM LEVEL 1.8 MG/DL (1.8-2.4); SODIUM LEVEL 143 MEQ/L (136-145)
[2019-01-08] MEDS ORDERED: POTASSIUM CHLORIDE 10 MEQ SR TABLET PO ONE ×2 (05:45→18:00)
[2019-01-08] MEDS: HEPARIN SOD (PORCINE) 5000 UNITS/ML VIAL SC SCH (06:50)
[2019-01-08] MEDS: KCL 10MEQ/100ML SWI (KRUN) 10 MEQ in IV 1 EA IV SCH ×3 (06:51→10:09)
[2019-01-08 08:00] VITALS: BP 140/98
[2019-01-08] MEDS: MULTIVITAMINS/MINERALS THERAP 1 TAB PO SCH (08:30)
[2019-01-08] MEDS: THIAMINE 100 MG TAB PO SCH (08:30)
[2019-01-08] MEDS: LR 1,000 ML IV SCH (08:30)
[2019-01-08] MEDS: CHLORHEXIDINE GLUCONATE 0.12 % 15ML UDC (PERIDEX ORAL RINSE) SSP SCH (08:30)
[2019-01-08] MEDS: FLUCONAZOLE 100 MG TAB PO SCH (08:30)
[2019-01-08] MEDS: FOLIC ACID 1 MG TAB PO SCH (08:30)
[2019-01-08] MEDS: NICOTINE 14 MG/24 HR TRANSDERMAL TD SCH (08:30)
[2019-01-08] MEDS: MAG SULF 1GM/100ML (MAG RUN) 1 GM in IV 1 EA IV SCH ×2 (10:09→12:11)
[2019-01-08 12:00] VITALS: BP 135/96
--- NOTE | 2019-01-08 12:06 | DS.PDOC ---
Discharge Summary General Date of Admission Jan 05, 2019 at 14:16 Date of Discharge 01/08/2019 Attending Physician: ADALBERTO ARBOLEDA MD Discharge Summary PROCEDURES PERFORMED DURING STAY: None. ADMITTING DIAGNOSES: 1. Suicide attempt, trazodone overdose. DISCHARGE DIAGNOSES: 1. Suicide attempt, trazodone overdose, C. difficile, oral thrush. COMPLICATIONS/CHIEF COMPLAINT: Alcohol Abuse. HISTORY OF PRESENT ILLNESS: 33-year-old female with past medical history of alcohol abuse, IV drug use, anxiety/depression, was admitted for suicide attempt with slashing her right wrist and overdosing on trazodone. She was admitted to the ICU for serotonin syndrome, treated with benzodiazepines and cyproheptadine, improvement noted in 24-48 hours. She was subsequently treated for alcohol withdrawal with further oral and IV benzodiazepines as needed, per [facility] protocol, improving. Patient was also found to have C. difficile, recently took antibiotics in the outpatient setting after teeth extraction, started on oral vancomycin, patient will need to complete a 10 day course of 125 mg of oral vancomycin every 6 hours. Patient also found to have oral thrush, started on fluconazole, should complete a 7-10 day course. Patient evaluated by psychiatry, will be transferred to inpatient mental health unit later today, further care as per psychiatric department. HOSPITAL COURSE: As above. DISCHARGE MEDICATIONS: Please see below. ALLERGIES: Please see below. PHYSICAL EXAMINATION: VITAL SIGNS: Please see below. GENERAL: No distress HEENT: Normocephalic, atraumatic, moist mucous membranes NECK: Supple CARDIOVASCULAR EXAMINATION: S1, S2, no murmurs RESPIRATORY EXAMINATION: Clear to auscultation, no wheezing ABDOMINAL EXAMINATION: Soft, nontender, nondistended, positive bowel sounds EXTREMITIES: Range of motion intact SKIN: No rash NEUROLOGICAL EXAMINATION: Alert and oriented 3, no focal deficits PSYCHIATRIC EXAMINATION: Calm and cooperative LABORATORY DATA: Please see below. PROGNOSIS: Fair ACTIVITY: As tolerated. DIET: Regular DISCHARGE PLAN: Follow-up with psychiatrist in inpatient mental health unit, PCP after discharge. DISPOSITION: Inpatient mental health unit. DISCHARGE INSTRUCTIONS: 1. As above. DISCHARGE CONDITION: Stable. TIME SPENT ON DISCHARGE: Greater than 35 minutes. Vital Signs/I&Os Vital Signs Date Time Temp Pulse Resp B/P (MAP) Pulse Ox O2 Delivery O2 Flow Rate FiO2 01/08/19 08:00 96 140/98 01/08/19 08:00 98.0 16 97 Room Air I&O- Last 24 Hours up to 6 AM0 01/08/19 06:00 Intake Total 3700 ml Output Total 4105 ml Balance -405 ml Laboratory Data Labs 24H Laboratory Tests 2 01/08/19 04:38: Nucleated Red Blood Cells % (auto) 0.0, Anion Gap 7L, Glomerular Filtration Rate > 60.0, Calcium Level 8.5, Magnesium Level 1.8 CBC/BMP Laboratory Tests 01/08/19 04:38 Discharge Medications Scheduled Amoxicillin (Amoxicillin) 500 Mg Capsule, 500 MG PO TID, (Reported) FILLED 12/30/18 FOR 10 DAYS Chlorhexidine Gluconate (Chlorhexidine Gluconate) 473 Ml Mouthwash, 15 ML PO BID, (Reported) FILLED 12/30/18 FOR 7 DAYS Clonidine HCl (Clonidine HCl) 0.2 Mg Tablet, 0.2 MG PO QHS, (Reported) Disulfiram (Disulfiram) 250 Mg Tablet, 250 MG PO DAILY, (Reported) Norethindrone-Ethinyl Estrad (Pirmella 7-7-7-28 Tablet) 1 Each Tablet, 1 TAB PO DAILY, (Reported) Paroxetine HCl (Paroxetine HCl) 20 Mg Tablet, 20 MG PO DAILY, (Reported) Trazodone HCl (Trazodone HCl) 150 Mg Tablet, 150 MG PO QHS, (Reported) Scheduled PRN Acetaminophen (Acetaminophen) 325 Mg Tablet, 650 MG PO Q6H PRN for PAIN, (Reported) Allergies Coded Allergies: Influenza Virus Vaccines (Verified Allergy, Unknown, 09/28/18) Sulfa (Sulfonamide Antibiotics) (Verified Allergy, Unknown, 09/28/18) oseltamivir (Verified Adverse Reaction, Intermediate, liver failure, 01/05/19) NSAIDS (Non-Steroidal Anti-Inflamma (Verified Adverse Reaction, Mild, gastric bypass, 09/28/18) ADLABERTO ARBOLEDA MD Jan 08, 2019 12:06
[2019-01-08] MEDS ORDERED: ONDANSETRON 4 MG TAB (S0181) PO PRN (13:00)
== END 2019-01-08 15:33 | DRG 812 ==
LOC: EDBD 07:30 → M ED 07:30 → M ED INP 14:16 → M ICU 16:14
PROVIDERS: ADMIT Internal Medicine; ATTEND Internal Medicine
DX: T43.212A Poisoning by selective serotonin and norepinephrine reuptake inhibitors, intentional self-harm, initial encounter (principal); A04.72 Enterocolitis due to Clostridium difficile, not specified as recurrent; B37.0 Candidal stomatitis; F32.9 Major depressive disorder, single episode, unspecified; F41.9 Anxiety disorder, unspecified; F17.200 Nicotine dependence, unspecified, uncomplicated; Z98.84 Bariatric surgery status; F10.20 Alcohol dependence, uncomplicated; Z79.899 Other long term (current) drug therapy; Z88.7 Allergy status to serum and vaccine; Z88.2 Allergy status to sulfonamides; Z88.6 Allergy status to analgesic agent; Z88.8 Allergy status to other drugs, medicaments and biological substances

== ENCOUNTER 2019-01-08 14:37 | Inpatient (IN) | payer OTHER ==
[~2019-01-08] VITALS: Ht 162.6 cm; Wt 69.2 kg
[~2019-01-08 14:37] MED LIST: ACET1TAB55 PO; AMOX500C PO; CLON0.2T PO; DISU250T PO; PARO20TA3 PO; PERI12LIQ PO; TRAZ150T90 PO; [UNRECOGNIZED DRUG - CODE] PO
[2019-01-08 17:32] VITALS: BP 142/102
[2019-01-08 17:34] VITALS: BP 142/102
[2019-01-08] MEDS: VANCOMYCIN ORAL SOL 250MG/5ML ORAL SYRINGE PO SCH (17:47)
[2019-01-08] MEDS: LORazepam 2 MG TAB PO PRN (17:48)
[2019-01-08] MEDS ORDERED: ONDANSETRON 4 MG TAB (S0181) PO PRN (19:00)
[2019-01-08] MEDS: THIAMINE 100 MG TAB PO SCH (21:11)
[2019-01-09] VITALS (7 sets, daily range): BP systolic 126–157; BP diastolic 87–100
[2019-01-09] MEDS: VANCOMYCIN ORAL SOL 250MG/5ML ORAL SYRINGE PO SCH ×4 (00:06→18:03)
[2019-01-09] MEDS: FOLIC ACID 1 MG TAB PO SCH (08:25)
[2019-01-09] MEDS: THIAMINE 100 MG TAB PO SCH ×2 (08:26→21:32)
[2019-01-09] MEDS: FLUCONAZOLE 100 MG TAB PO SCH (08:26)
[2019-01-09] MEDS: LORazepam 2 MG TAB PO PRN ×3 (08:41→18:35)
[2019-01-09] MEDS ORDERED: MULTIVITAMINS/MINERALS THERAP 1 TAB PO SCH (09:00)
[2019-01-09] MEDS ORDERED: NICOTINE 14 MG/24 HR TRANSDERMAL TD SCH (11:15)
[2019-01-09] MEDS: NICOTINE 21MG/24HR 1 EA TRANSDERMAL TD SCH (11:44)
--- NOTE | 2019-01-09 13:11 | HPEPDOC ---
[facility] Medical History & Physical Date of Admission Jan 09, 2019 Date of Service: Jan 09, 2019 History and Physical CHIEF COMPLAINT: Suicide attempt HISTORY OF PRESENT ILLNESS: 33-year-old female with past medical history of alcohol abuse, IV drug use, anxiety, depression, was initially admitted after overdosing on trazodone and slitting her right wrist. She was admitted to the ICU for serotonin syndrome, treated with benzodiazepines and cyproheptadine, improvement was noted. Within 24-48 hours. She was subsequently treated with benzodiazepines for alcohol withdrawal as per [facility] protocol. Patient improved over the next 24-48 hours, psychiatry was consulted for transfer to inpatient mental health unit for further treatment. During hospitalization patient was also found to be C. difficile positive, along with having oral flush. She is currently being treated with oral vancomycin and fluconazole. Patient without any complaint at this time, denies any shortness of breath, chest pain, nausea, vomiting, abdominal pain or diarrhea. 10 point review of system was negative except for above PAST MEDICAL HISTORY: 1. Alcohol abuse. 2. IV drug use. 3. Anxiety/depression. SOCIAL HISTORY: Denies smoking. History of binge drinking. History of polysubstance abuse FAMILY HISTORY: Noncontributory ALLERGIES: Please see below. HOME MEDICATIONS: Please see below. PHYSICAL EXAMINATION: VITAL SIGNS: Please see below. GENERAL: No distress HEENT: Normocephalic, atraumatic, moist mucous membranes NECK: Supple CARDIOVASCULAR EXAMINATION: S1, S2, no murmurs RESPIRATORY EXAMINATION: Clear to auscultation, no wheezing ABDOMINAL EXAMINATION: Soft, nontender, nondistended, positive bowel sounds EXTREMITIES: Range of motion intact SKIN: No rash NEUROLOGICAL EXAMINATION: Alert and oriented 3, no focal deficits PSYCHIATRIC EXAMINATION: Calm and cooperative LABORATORY DATA: See below. MICROBIOLOGY: Please see below. ASSESSMENT: 33-year-old female initially admitted to the hospital after suicide attempt with cutting her wrist and overdosing on trazodone now medically stable to transfer to inpatient mental health unit for further treatment. PLAN: 1. Suicide attempt. Overdose on trazodone and cut her right wrist, admitted to ICU for serotonin syndrome, now stable and transferred to inpatient medical unit. Further treatment as per psychiatry 2. C. difficile Continue oral vancomycin 125 mg every 6 hours for a total of 10 days. 3. Oral thrush Continue fluconazole for a total of 7-10 days. Vital Signs Vital Signs Date Time Temp Pulse Resp B/P (MAP) Pulse Ox O2 Delivery O2 Flow Rate FiO2 01/09/19 10:03 99 149/87 01/09/19 06:41 97.7 14 Home Medications Scheduled Amoxicillin (Amoxicillin) 500 Mg Capsule, 500 MG PO TID FILLED 12/30/18 FOR 10 DAYS Chlorhexidine Gluconate (Chlorhexidine Gluconate) 473 Ml Mouthwash, 15 ML PO BID FILLED 12/30/18 FOR 7 DAYS Clonidine HCl (Clonidine HCl) 0.2 Mg Tablet, 0.2 MG PO QHS Disulfiram (Disulfiram) 250 Mg Tablet, 250 MG PO DAILY Norethindrone-Ethinyl Estrad (Pirmella 7-7-7-28 Tablet) 1 Each Tablet, 1 TAB PO DAILY Paroxetine HCl (Paroxetine HCl) 20 Mg Tablet, 20 MG PO DAILY Trazodone HCl (Trazodone HCl) 150 Mg Tablet, 150 MG PO QHS Scheduled PRN Acetaminophen (Acetaminophen) 325 Mg Tablet, 650 MG PO Q6H PRN for PAIN Allergies Coded Allergies: Influenza Virus Vaccines (Verified Allergy, Unknown, 09/28/18) Sulfa (Sulfonamide Antibiotics) (Verified Allergy, Unknown, 09/28/18) sertraline (Verified Adverse Reaction, Severe, suicidal ideation and nightmares, 01/08/19) oseltamivir (Verified Adverse Reaction, Intermediate, liver failure, 01/05/19) NSAIDS (Non-Steroidal Anti-Inflamma (Verified Adverse Reaction, Mild, gastric bypass, 09/28/18) A-FIB/CHADSVASC A-FIB History Current/History of A-Fib/PAF?: No ADALBERTO ARBOLEDA MD Jan 09, 2019 13:11
[2019-01-09] MEDS ORDERED: traZODone 50 MG TAB PO PRN (18:00)
[2019-01-09] MEDS: NEOSPORIN TOP OINT 15GM TOP PRN (18:04)
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
[2019-01-09] MEDS ORDERED: OYSTER SHELL CALCIUM 500 MG TAB PO SCH (21:00)
[2019-01-09] MEDS: traZODone 50 MG TAB PO PRN (21:32)
[2019-01-09] MEDS: cloNIDine 0.2 MG TAB PO SCH (21:32)
[2019-01-10] VITALS (7 sets, daily range): BP systolic 111–131; BP diastolic 70–87
[2019-01-10] MEDS: VANCOMYCIN ORAL SOL 250MG/5ML ORAL SYRINGE PO SCH ×5 (00:30→23:33)
[2019-01-10] MEDS: NICOTINE 21MG/24HR 1 EA TRANSDERMAL TD SCH (08:20)
[2019-01-10] MEDS: FLUCONAZOLE 100 MG TAB PO SCH (08:21)
[2019-01-10] MEDS: MULTIVITAMINS/MINERALS THERAP 1 TAB PO SCH (08:21)
[2019-01-10] MEDS: THIAMINE 100 MG TAB PO SCH ×2 (08:21→20:15)
[2019-01-10] MEDS: PARoxetine 10MG TABLET PO SCH (08:21)
[2019-01-10] MEDS: NORETHINDRONE ETHINYL ESTRADIOL PO SCH (08:21)
[2019-01-10] MEDS: FOLIC ACID 1 MG TAB PO SCH (08:21)
[2019-01-10] MEDS: LORazepam 2 MG TAB PO PRN ×2 (08:24→15:26)
[2019-01-10] MEDS: ACETAMINOPHEN TAB 650MG DOSE (2X325MG) PO PRN (11:50)
[2019-01-10] MEDS: OYSTER SHELL CALCIUM 500 MG TAB PO SCH ×2 (11:50→18:01)
[2019-01-10] MEDS: cloNIDine 0.2 MG TAB PO SCH (20:15)
[2019-01-10] MEDS: traZODone 50 MG TAB PO PRN (21:32)
[2019-01-11] MEDS: VANCOMYCIN ORAL SOL 250MG/5ML ORAL SYRINGE PO SCH ×4 (05:30→23:37)
[2019-01-11 06:02] VITALS: BP 135/74
--- NOTE | 2019-01-11 06:39 | MHIPN ---
DATE OF SERVICE: 01/10/2019 The patient today states that she continues to be very anxious and very depressed. She is feeling hopeless, helpless and having feelings of worthlessness. She says she did sleep. She woke up at 2:00 a.m. in the morning because she had a nightmare, but she was able to fall right back asleep. She did take the trazodone 150 mg but doesn't want to try a higher dose because she felt a little groggy this morning. MENTAL STATUS EXAMINATION: She is alert and oriented times three. Eye contact is fair. Psychomotor activity is decreased. There is no formal thought disorder noted. She is depressed and anxious. Affect is full range and appropriate to mood. She is not psychotic, suicidal or homicidal. Concentration is fair. Memory intact. Insight and judgment is fair. DIAGNOSIS: Major depressive disorder, recurrent, in remission. Post traumatic stress disorder. Social anxiety. Alcohol use disorder, severe. History of opioid use disorder, severe. TREATMENT PLAN: At this point, we will continue to monitor the patient for continued elevation and stabilization of her mood. Will continue to monitor her for continued resolution of suicidal ideation. We just started her on a higher dose of Paxil 30 mg and so we need to give the patient further time to see if we see further clinical response. [facility]TDD
[2019-01-11] MEDS: ACETAMINOPHEN TAB 650MG DOSE (2X325MG) PO PRN ×2 (07:01→15:09)
[2019-01-11 08:09] VITALS: BP 123/73
[2019-01-11] MEDS: NICOTINE 21MG/24HR 1 EA TRANSDERMAL TD SCH (08:18)
[2019-01-11] MEDS: NORETHINDRONE ETHINYL ESTRADIOL PO SCH (08:18)
[2019-01-11] MEDS: FLUCONAZOLE 100 MG TAB PO SCH (08:19)
[2019-01-11] MEDS: PARoxetine 10MG TABLET PO SCH (08:19)
[2019-01-11] MEDS: MULTIVITAMINS/MINERALS THERAP 1 TAB PO SCH (08:20)
[2019-01-11] MEDS: THIAMINE 100 MG TAB PO SCH (08:20)
[2019-01-11] MEDS: FOLIC ACID 1 MG TAB PO SCH (08:21)
[2019-01-11] MEDS: cloNIDine 0.1 MG TAB PO PRN (08:22)
--- NOTE | 2019-01-11 09:25 | MHIPNPDOC ---
[facility] Progress Note Progress Note Inpatient Progress Note Princess De La Rosa MRN: N/A Date of : N/A Date of Service: 01/11/2019 History of Present Illness The patient, a 33-year-old woman, who recently was discharged from my addiction clinic where she was treated for alcoholism, presents after a significant overdose. The patient reports that she became increasingly depressed, stopped her Paxil and felt worse and after her boyfriend left for a week to go to a hunting trip she became increasingly depressed, relapsed on alcohol after she'd run out of disulfiram and began to contemplate suicide. She reports cutting her wrists and taking an overdose of trazodone in an attempt to kill herself. The patient reports that she has had increasing depression with hopelessness, loss of interest, insomnia. Recently started with [facility] for medication management. Psychosocial information is taken from my previous assessment and updated as appropriate. Interval History The patient is met with today. She reports she is feeling "worse" since being restarted on Paxil and trazodone makes her groggy and dizzy. She's still scoring high on the CIWA. At times refusing the Ativan as she does not want to be impaired by it, after prompting she does take it. She reports that her depression is still problematic and she still feels "horrible." Since presenting she is pending application to [facility], attending groups. No major behavioral problems overnight. Review Of Systems General: Admits to some fever at times. Denies appetite changes Cardiovascular: Denies Chest pain or palpations GI: Admits to diarrhea and mild upset stomach. Denies vomiting or constipation Respiratory: Denies shortness of breath or cough Neuro: Denies dizziness, tremors Derm: Denies any rashes or pruritus : Denies any dysuria or urinary problems MSK: Denies any muscle tightness or stiffness HEENT: Denies any vision changes or headaches Heme/Lymph: denies any bruising or bleeding Endo: denies any cold/heat intolerance or water intake changes Psychotherapy None on this visit. Vital Signs Reviewed. Mental Status Examination General: Well dressed with good hygiene Speech: Spontaneous and fluid Thought processes: Linear and logical MSK: Mild tremor while resting. No gait problems noted Thought content: Remorse Abstract reasoning, and computation: Intact Description of associations: Intact Description of abnormal or psychotic thoughts: Denies any suicidal or homicidal ideation. Denies any auditory or visual hallucinations. Does not appear to be responding to internal stimuli. Does not appear to be endorsing any bizarre or paranoid ideation. Judgment: fair Insight: fair Orientation: Alert and orientated 3 Cognition: Grossly normal Recent and remote memory: Intact Attention span and concentration: Mildly impaired Fund of knowledge: Adequate Mood: "okay" Affect: Dysthymic with a constricted range Diagnoses Unspecified depressive disorder. Alcohol use disorder, severe Tobacco use disorder, severe. Assessment and Plan Unspecified depressive disorder: Discontinue Paxil and trazodone, start Rozerem 8 mg daily for sleep. We'll allow patient to have therapeutic washout due to concerns for serotonin storm. Alcohol use disorder: Continue alcohol withdrawal treatments. Tobacco use disorder: Continue nicotine replacement. Disposition The patient will need a further inpatient admission in order to treat her severe depression, alcohol withdrawal and adjust her medication as appropriate due to her severe suicide attempt. Time Spent 15 minutes [id number]. Friday Vital Signs Vital Signs Date Time Temp Pulse Resp B/P (MAP) Pulse Ox O2 Delivery O2 Flow Rate FiO2 01/11/19 08:22 123/73 01/11/19 08:09 100 16 01/11/19 06:02 99.0 Current Medications Current Medications Medications (Trade) Dose Ordered Sig/Nette Route PRN Reason Start Time Stop Time Status Last Admin Dose Admin Acetaminophen (Tylenol Tab) 650 mg Q6HP PRN PO PAIN / FEVER 01/10/19 11:45 01/11/19 07:01 Calcium Carbonate (Oscal) 500 mg BID PO 01/09/19 21:00 01/10/19 10:19 DC 01/09/19 21:32 Calcium Carbonate (Oscal) 500 mg BID@1200,1900 PO 01/10/19 12:00 01/10/19 18:01 Clonidine HCl (Catapres) 0.1 mg BIDP PRN PO ANXIETY 01/09/19 21:00 01/11/19 08:22 Clonidine HCl (Catapres) 0.2 mg QHS PO 01/09/19 21:00 01/10/19 20:15 Fluconazole (Diflucan) 100 mg DAILY PO 01/09/19 09:00 01/11/19 08:19 Folic Acid (Folic Acid) 1 mg DAILY PO 01/09/19 09:00 01/11/19 08:21 Lorazepam (Ativan) 2 mg ASDIRECTED PRN PO SEE PROTOCOL 01/08/19 17:30 01/10/19 15:26 Miscellaneous (Unresolved Patient Own Med Order) SEE LABEL COMMENTS DAILY XX 01/09/19 09:00 01/09/19 17:32 DC Multivitamins (Theragram-M) 1 tab DAILY PO 01/09/19 09:00 01/09/19 16:07 DC 01/09/19 08:26 Multivitamins (Theragram-M) 2 tab DAILY PO 01/10/19 09:00 01/11/19 08:20 Neomycin/ Polymyxin/ Bacitracin (Neosporin) apply to right wr... BID PRN TOP laceration irritation 01/09/19 16:00 01/09/19 18:04 Nicotine (Nicoderm Cq 14mg) 1 patch DAILY TD 01/09/19 11:15 01/09/19 11:29 DC Nicotine (Nicoderm Cq 21mg) 1 patch DAILY TD 01/09/19 11:30 01/11/19 08:18 Ondansetron HCl (Zofran) 4 mg Q6HP PRN PO NAUSEA OR VOMITING 01/08/19 19:00 Paroxetine HCl (PAXil) 30 mg DAILY PO 01/10/19 09:00 01/11/19 08:19 Patient Own Medication (Patient'S Own Med) norethindrone-ethinYL estradiol (... DAILY PO 01/10/19 09:00 01/11/19 08:18 Thiamine HCl (Thiamine HCl) 100 mg BID PO 01/08/19 21:00 01/11/19 20:59 01/11/19 08:20 Trazodone HCl (Desyrel) 50 mg QHSP PRN PO INSOMNIA 01/09/19 18:00 01/09/19 20:14 DC Trazodone HCl (Desyrel) 150 mg QHSP PRN PO INSOMNIA 01/09/19 20:15 01/10/19 21:32 Vancomycin HCl (First-Vancomycin 50(Firvanq)- 250mg/5ml) 125 mg Q6H PO 01/08/19 18:30 01/11/19 05:30 Allergies Coded Allergies: Influenza Virus Vaccines (Verified Allergy, Unknown, 09/28/18) Sulfa (Sulfonamide Antibiotics) (Verified Allergy, Unknown, 09/28/18) sertraline (Verified Adverse Reaction, Severe, suicidal ideation and nightmares, 01/08/19) oseltamivir (Verified Adverse Reaction, Intermediate, liver failure, 01/05/19) NSAIDS (Non-Steroidal Anti-Inflamma (Verified Adverse Reaction, Mild, gastric bypass, 09/28/18) RAJINDER ARRIAGA DO Jan 11, 2019 09:25
[2019-01-11] MEDS: OYSTER SHELL CALCIUM 500 MG TAB PO SCH ×2 (11:52→18:07)
[2019-01-11 11:58] VITALS: BP 114/81
[2019-01-11] MEDS: NEOSPORIN TOP OINT 15GM TOP PRN (13:13)
[2019-01-11 18:00] VITALS: BP 134/81
[2019-01-11 20:00] VITALS: BP 114/65
[2019-01-11] MEDS: cloNIDine 0.2 MG TAB PO SCH (20:25)
[2019-01-11] MEDS: RAMELTEON 8 MG TAB (ROZEREM) PO SCH (21:16)
[2019-01-12] MEDS: VANCOMYCIN ORAL SOL 250MG/5ML ORAL SYRINGE PO SCH ×3 (05:58→18:29)
[2019-01-12 06:23] VITALS: BP 137/81
[2019-01-12] MEDS: ACETAMINOPHEN TAB 650MG DOSE (2X325MG) PO PRN ×3 (06:46→20:36)
[2019-01-12] MEDS: FLUCONAZOLE 100 MG TAB PO SCH (08:23)
[2019-01-12] MEDS: MULTIVITAMINS/MINERALS THERAP 1 TAB PO SCH (08:24)
[2019-01-12] MEDS: NICOTINE 21MG/24HR 1 EA TRANSDERMAL TD SCH (08:24)
[2019-01-12] MEDS: NORETHINDRONE ETHINYL ESTRADIOL PO SCH (08:25)
[2019-01-12] MEDS: FOLIC ACID 1 MG TAB PO SCH (08:25)
[2019-01-12 10:09] VITALS: BP 120/72
[2019-01-12] MEDS: LORazepam 2 MG TAB PO PRN (10:16)
[2019-01-12 10:33] VITALS: BP 120/72
[2019-01-12] MEDS: OYSTER SHELL CALCIUM 500 MG TAB PO SCH ×2 (12:16→18:32)
--- NOTE | 2019-01-12 14:14 | MHIPNPDOC ---
[facility] Progress Note Progress Note Inpatient Progress Note Princess De La Rosa MRN: N/A Date of : N/A Date of Service: 01/12/2019 History of Present Illness The patient, a 33-year-old woman, who recently was discharged from my addiction clinic where she was treated for alcoholism, presents after a significant overdose. The patient reports that she became increasingly depressed, stopped her Paxil and felt worse and after her boyfriend left for a week to go to a hunting trip she became increasingly depressed, relapsed on alcohol after she'd run out of disulfiram and began to contemplate suicide. She reports cutting her wrists and taking an overdose of trazodone in an attempt to kill herself. The patient reports that she has had increasing depression with hopelessness, loss of interest, insomnia. Recently started with [facility] for medication management. Psychosocial information is taken from my previous assessment and updated as appropriate. Interval History The patient is met with today. She reports that she is feeling improved off the Paxil. She does feel that she is "withdrawing" from it with some mild "yucky feelings." She reports she still has some low mood but feels better around others. She reports helping others improves her mood. She still has some down periods of time where she at times wonders whether she should have been revived. The patient has been cooperative, attending groups with no major behavioral problems. She still is scoring on her alcohol withdrawal protocol and is receiving Ativan, although she due to her addiction history is ambivalent about taking this as she "does not want another addiction." Review Of Systems General: Admits to some sweats at night, but no fever at this moment. Denies appetite changes. Cardiovascular: Denies Chest pain or palpations GI: Denies diarrhea, constipation, vomiting or GI upset since stop of Paxil. Respiratory: Denies shortness of breath or cough Neuro: Admits to mild tremors at times, denies dizziness. Derm: Denies any rashes or pruritus : Denies any dysuria or urinary problems MSK: Denies any muscle tightness or stiffness HEENT: Denies any vision changes or headaches Heme/Lymph: denies any bruising or bleeding Endo: denies any cold/heat intolerance or water intake changes Psychotherapy None on this visit. Vital Signs Reviewed. Mental Status Examination General: Well dressed with good hygiene Speech: Spontaneous and fluid Thought processes: Linear and logical MSK: Mild tremor while resting. No gait problems noted Thought content: Remorse Abstract reasoning, and computation: Intact Description of associations: Intact Description of abnormal or psychotic thoughts: Admits to fleeting SI at times, denies any at this moment. Denies auditory or visual hallucinations. Denies homicidal thoughts. She does not appear to be responding to internal stimuli. Judgment: fair Insight: fair Orientation: Alert and orientated 3 Cognition: Grossly normal Recent and remote memory: Intact Attention span and concentration: Intact Fund of knowledge: Adequate Mood: "okay" Affect: Improving dysthymic affect with a less constricted range. Diagnoses Unspecified depressive disorder. Alcohol use disorder, severe Tobacco use disorder, severe. Assessment and Plan Unspecified depressive disorder: Continue Rozerem 8 mg for sleep. Will add prazosin 1 mg for nightmare. Discussed risks, benefits and potential problems. Will consider Wellbutrin as alcohol withdrawal improves due to risk of seizure, discussed with patient at length. Alcohol use disorder: Continue alcohol withdrawal treatments. Tobacco use disorder: Continue nicotine replacement. Disposition The patient will need a further inpatient admission in order to treat her severe depression, alcohol withdrawal and adjust her medication as appropriate due to her severe suicide attempt. Time Spent 15 minutes [id number] Friday Vital Signs Vital Signs Date Time Temp Pulse Resp B/P (MAP) Pulse Ox O2 Delivery O2 Flow Rate FiO2 01/12/19 10:33 99.5 77 16 120/72 Room Air Current Medications Current Medications Medications (Trade) Dose Ordered Sig/Nette Route PRN Reason Start Time Stop Time Status Last Admin Dose Admin Acetaminophen (Tylenol Tab) 650 mg Q6HP PRN PO PAIN / FEVER 01/10/19 11:45 01/12/19 12:55 Calcium Carbonate (Oscal) 500 mg BID PO 01/09/19 21:00 01/10/19 10:19 DC 01/09/19 21:32 Calcium Carbonate (Oscal) 500 mg BID@1200,1900 PO 01/10/19 12:00 01/12/19 12:16 Clonidine HCl (Catapres) 0.1 mg BIDP PRN PO ANXIETY 01/09/19 21:00 01/11/19 08:22 Clonidine HCl (Catapres) 0.2 mg QHS PO 01/09/19 21:00 01/11/19 20:25 Fluconazole (Diflucan) 100 mg DAILY PO 01/09/19 09:00 01/12/19 08:23 Folic Acid (Folic Acid) 1 mg DAILY PO 01/09/19 09:00 01/12/19 08:25 Lorazepam (Ativan) 2 mg ASDIRECTED PRN PO SEE PROTOCOL 01/08/19 17:30 01/12/19 10:16 Miscellaneous (Unresolved Patient Own Med Order) SEE LABEL COMMENTS DAILY XX 01/09/19 09:00 01/09/19 17:32 DC Multivitamins (Theragram-M) 1 tab DAILY PO 01/09/19 09:00 01/09/19 16:07 DC 01/09/19 08:26 Multivitamins (Theragram-M) 2 tab DAILY PO 01/10/19 09:00 01/12/19 08:24 Neomycin/ Polymyxin/ Bacitracin (Neosporin) apply to right wr... BID PRN TOP laceration irritation 01/09/19 16:00 01/11/19 13:13 Nicotine (Nicoderm Cq 14mg) 1 patch DAILY TD 01/09/19 11:15 01/09/19 11:29 DC Nicotine (Nicoderm Cq 21mg) 1 patch DAILY TD 01/09/19 11:30 01/12/19 08:24 Ondansetron HCl (Zofran) 4 mg Q6HP PRN PO NAUSEA OR VOMITING 01/08/19 19:00 Paroxetine HCl (PAXil) 30 mg DAILY PO 01/10/19 09:00 01/11/19 16:10 DC 01/11/19 08:19 Patient Own Medication (Patient'S Own Med) norethindrone-ethinYL estradiol (... DAILY PO 01/10/19 09:00 01/12/19 08:25 Ramelteon (Rozerem) 8 mg QHS PO 01/11/19 21:00 01/11/19 21:16 Thiamine HCl (Thiamine HCl) 100 mg BID PO 01/08/19 21:00 01/11/19 20:59 DC 01/11/19 08:20 Trazodone HCl (Desyrel) 50 mg QHSP PRN PO INSOMNIA 01/09/19 18:00 11/23/19 20:14 DC Trazodone HCl (Desyrel) 150 mg QHSP PRN PO INSOMNIA 01/09/19 20:15 01/11/19 16:10 DC 01/10/19 21:32 Vancomycin HCl (First-Vancomycin 50(Firvanq)- 250mg/5ml) 125 mg Q6H PO 01/08/19 18:30 01/12/19 12:53 Allergies Coded Allergies: Influenza Virus Vaccines (Verified Allergy, Unknown, 09/28/18) Sulfa (Sulfonamide Antibiotics) (Verified Allergy, Unknown, 09/28/18) sertraline (Verified Adverse Reaction, Severe, suicidal ideation and nig htmares, 01/08/19) oseltamivir (Verified Adverse Reaction, Intermediate, liver failure, 01/05/19) NSAIDS (Non-Steroidal Anti-Inflamma (Verified Adverse Reaction, Mild, gastric bypass, 09/28/18) RAJINDER ARRIAGA DO Jan 12, 2019 14:14
[2019-01-12 17:22] VITALS: BP 128/82
[2019-01-12] MEDS: cloNIDine 0.2 MG TAB PO SCH (20:35)
[2019-01-12] MEDS: PRAZOSIN 1 MG CAP PO SCH (20:36)
[2019-01-12] MEDS: RAMELTEON 8 MG TAB (ROZEREM) PO SCH (21:48)
[2019-01-13] MEDS: VANCOMYCIN ORAL SOL 250MG/5ML ORAL SYRINGE PO SCH ×5 (00:28→23:31)
[2019-01-13 06:57] VITALS: BP 120/75
[2019-01-13] MEDS: FLUCONAZOLE 100 MG TAB PO SCH (08:21)
[2019-01-13] MEDS: NORETHINDRONE ETHINYL ESTRADIOL PO SCH (08:22)
[2019-01-13] MEDS: MULTIVITAMINS/MINERALS THERAP 1 TAB PO SCH (08:22)
[2019-01-13] MEDS: ACETAMINOPHEN TAB 650MG DOSE (2X325MG) PO PRN (08:23)
[2019-01-13] MEDS: FOLIC ACID 1 MG TAB PO SCH (08:23)
[2019-01-13] MEDS: NICOTINE 21MG/24HR 1 EA TRANSDERMAL TD SCH (08:23)
[2019-01-13 10:00] VITALS: BP 110/60
--- NOTE | 2019-01-13 10:08 | MHIPNPDOC ---
[facility] Progress Note Progress Note Inpatient Progress Note Princess De La Rosa MRN: N/A Date of : N/A Date of Service: 01/13/2019 History of Present Illness The patient, a 33-year-old woman, who recently was discharged from my addiction clinic where she was treated for alcoholism, presents after a significant overdose. The patient reports that she became increasingly depressed, stopped her Paxil and felt worse and after her boyfriend left for a week to go to a hunting trip she became increasingly depressed, relapsed on alcohol after she'd run out of disulfiram and began to contemplate suicide. She reports cutting her wrists and taking an overdose of trazodone in an attempt to kill herself. The patient reports that she has had increasing depression with hopelessness, loss of interest, insomnia. Recently started with [facility] for medication management. Psychosocial information is taken from my previous assessment and updated as appropriate. Interval History The patient was met with today in the hallway. She reports that she is getting some improvement in her depression as she spends more time with others. She otherwise reports that she feels improved, especially around others. She does report continued tremors and continued alcohol withdrawal medications being given. The patient does report that her mood does sink lower and that at times she has insomnia. She reports the Rozerem is much more helpful for her sleep and the prazosin has removed much of her nightmares only leaving "weird dreams." She has been amenable with no major problems on the unit, denying any overt suicidality, no major behavioral problems, attending groups well. Review Of Systems General: Admits to some sweats at night, but no fever at this moment. Denies appetite changes Cardiovascular: Denies Chest pain or palpitations GI: Denies diarrhea, constipation, vomiting or GI upset since stop of Paxil Respiratory: Denies shortness of breath or cough Neuro: Admits to mild tremors at times, denies dizziness Derm: Denies any rashes or pruritus : Denies any dysuria or urinary problems MSK: Denies any muscle tightness or stiffness HEENT: Denies any vision changes or headaches Heme/Lymph: denies any bruising or bleeding Endo: denies any cold/heat intolerance or water intake changes Psychotherapy None on this visit. Vital Signs Reviewed. Mental Status Examination General: Well dressed with good hygiene Speech: Spontaneous and fluid Thought processes: Linear and logical MSK: Mild tremor while resting. No gait problems noted Thought content: Remorse Abstract reasoning, and computation: Intact Description of associations: Intact Description of abnormal or psychotic thoughts: Admits to fleeting SI at times, denies any at this moment. Denies auditory or visual hallucinations. Denies homicidal thoughts. She does not appear to be responding to internal stimuli. Judgment: fair Insight: fair Orientation: Alert and orientated 3 Cognition: Grossly normal Recent and remote memory: Intact Attention span and concentration: Intact Fund of knowledge: Adequate Mood: "okay" Affect: Improving dysthymic affect with a less constricted range. Diagnoses Unspecified depressive disorder. Alcohol use disorder, severe Tobacco use disorder, severe. Assessment and Plan Unspecified depressive disorder: Will continue Rozerem 8 mg nightly for sleep as well as prazosin 1 mg. Will start Wellbutrin 150 mg extended release. Discussed the risks, benefits, and potential side effects of Wellbutrin in the setting of alcohol use. The patient, after given several different options including serotonin drugs and discussed about the risks of continued concerns of serotonin storm, reported that she was amenable to trying the Wellbutrin under close observation, as higher than normal doses can cause seizures. After discussion of the current literature related to increased risk of seizure being above 400 mg, the patient was amenable to trying Wellbutrin. Alcohol use disorder: Will continue CIWA protocol. Add Depakote 500 mg at night. Discussed risks, benefits, and potential side effects of using Depakote for extended alcohol withdrawal. Tobacco use disorder: Continue nicotine replacement. Disposition The patient will need a further inpatient admission in order to treat her severe depression, alcohol withdrawal and adjust her medication as appropriate due to her severe suicide attempt. Time Spent 15 minutes. Friday Vital Signs Vital Signs Date Time Temp Pulse Resp B/P (MAP) Pulse Ox O2 Delivery O2 Flow Rate FiO2 01/13/19 10:00 64 110/60 01/13/19 06:57 98.0 16 01/12/19 10:33 Room Air Current Medications Current Medications Medications (Trade) Dose Ordered Sig/Nette Route PRN Reason Start Time Stop Time Status Last Admin Dose Admin Acetaminophen (Tylenol Tab) 650 mg Q6HP PRN PO PAIN / FEVER 01/10/19 11:45 01/13/19 08:23 Calcium Carbonate (Oscal) 500 mg BID PO 01/09/19 21:00 01/10/19 10:19 DC 01/09/19 21:32 Calcium Carbonate (Oscal) 500 mg BID@1200,1900 PO 01/10/19 12:00 01/12/19 18:32 Clonidine HCl (Catapres) 0.1 mg BIDP PRN PO ANXIETY 01/09/19 21:00 01/11/19 08:22 Clonidine HCl (Catapres) 0.2 mg QHS PO 01/09/19 21:00 01/12/19 20:35 Fluconazole (Diflucan) 100 mg DAILY PO 01/09/19 09:00 01/13/19 08:21 Folic Acid (Folic Acid) 1 mg DAILY PO 01/09/19 09:00 01/13/19 08:23 Lorazepam (Ativan) 2 mg ASDIRECTED PRN PO SEE PROTOCOL 01/08/19 17:30 01/12/19 10:16 Miscellaneous (Unresolved Patient Own Med Order) SEE LABEL COMMENTS DAILY XX 01/09/19 09:00 01/09/19 17:32 DC Multivitamins (Theragram-M) 1 tab DAILY PO 01/09/19 09:00 01/09/19 16:07 DC 01/09/19 08:26 Multivitamins (Theragram-M) 2 tab DAILY PO 01/10/19 09:00 01/13/19 08:22 Neomycin/ Polymyxin/ Bacitracin (Neosporin) apply to right wr... BID PRN TOP laceration irritation 01/09/19 16:00 01/11/19 13:13 Nicotine (Nicoderm Cq 14mg) 1 patch DAILY TD 01/09/19 11:15 01/09/19 11:29 DC Nicotine (Nicoderm Cq 21mg) 1 patch DAILY TD 01/09/19 11:30 01/13/19 08:23 Ondansetron HCl (Zofran) 4 mg Q6HP PRN PO NAUSEA OR VOMITING 01/08/19 19:00 Paroxetine HCl (PAXil) 30 mg DAILY PO 01/10/19 09:00 01/11/19 16:10 DC 01/11/19 08:19 Patient Own Medication (Patient'S Own Med) norethindrone-ethinYL estradiol (... DAILY PO 01/10/19 09:00 01/13/19 08:22 Prazosin HCl (Minipress) 1 mg QHS PO 01/12/19 21:00 01/12/19 20:36 Ramelteon (Rozerem) 8 mg QHS PO 01/11/19 21:00 01/12/19 21:48 Thiamine HCl (Thiamine HCl) 100 mg BID PO 01/08/19 21:00 01/11/19 20:59 DC 01/11/19 08:20 Trazodone HCl (Desyrel) 50 mg QHSP PRN PO INSOMNIA 01/09/19 18:00 01/09/19 20:14 DC Trazodone HCl (Desyrel) 150 mg QHSP PRN PO INSOMNIA 01/09/19 20:15 01/11/19 16:10 DC 01/10/19 21:32 Vancomycin HCl (First-Vancomycin 50(Firvanq)- 250mg/5ml) 125 mg Q6H PO 01/08/19 18:30 01/13/19 06:46 Allergies Coded Allergies: Influenza Virus Vaccines (Verified Allergy, Unknown, 09/28/18) Sulfa (Sulfonamide Antibiotics) (Verified Allergy, Unknown, 09/28/18) sertraline (Verified Adverse Reaction, Severe, suicidal ideation and nightmares, 01/08/19) oseltamivir (Verified Adverse Reaction, Intermediate, liver failure, ) NSAIDS (Non-Steroidal Anti-Inflamma (Verified Adverse Reaction, Mild, gastric bypass, 09/28/18) RAJINDER ARRIAGA DO Jan 13, 2019 10:08
[2019-01-13] MEDS: OYSTER SHELL CALCIUM 500 MG TAB PO SCH ×2 (12:39→17:11)
[2019-01-13 15:24] VITALS: BP 144/90
[2019-01-13] MEDS: LORazepam 2 MG TAB PO PRN (15:27)
[2019-01-13 17:08] VITALS: BP 133/79
[2019-01-13] MEDS: buPROPion **XL** TABLET 150MG (WELLBUTRIN XL) PO SCH (17:11)
[2019-01-13] MEDS ORDERED: DIVALPROEX 500MG *ER* TAB PO ONE (19:00)
[2019-01-13] MEDS: cloNIDine 0.2 MG TAB PO SCH (21:01)
[2019-01-13] MEDS: PRAZOSIN 1 MG CAP PO SCH (21:02)
[2019-01-13] MEDS: RAMELTEON 8 MG TAB (ROZEREM) PO SCH (22:35)
[2019-01-14 05:53] VITALS: BP 125/75
[2019-01-14] MEDS: VANCOMYCIN ORAL SOL 250MG/5ML ORAL SYRINGE PO SCH ×3 (05:53→18:19)
[2019-01-14] MEDS: ACETAMINOPHEN TAB 650MG DOSE (2X325MG) PO PRN (06:25)
[2019-01-14] MEDS: cloNIDine 0.1 MG TAB PO PRN ×2 (06:25→17:25)
[2019-01-14] MEDS: NICOTINE 21MG/24HR 1 EA TRANSDERMAL TD SCH (08:22)
[2019-01-14] MEDS: FOLIC ACID 1 MG TAB PO SCH (08:23)
[2019-01-14] MEDS: FLUCONAZOLE 100 MG TAB PO SCH (08:23)
[2019-01-14] MEDS: NORETHINDRONE ETHINYL ESTRADIOL PO SCH (08:23)
[2019-01-14] MEDS: buPROPion **XL** TABLET 150MG (WELLBUTRIN XL) PO SCH (08:25)
[2019-01-14] MEDS: MULTIVITAMINS/MINERALS THERAP 1 TAB PO SCH (08:25)
[2019-01-14] MEDS: OYSTER SHELL CALCIUM 500 MG TAB PO SCH ×2 (12:12→18:19)
[2019-01-14] MEDS: NEOSPORIN TOP OINT 15GM TOP PRN (15:37)
[2019-01-14 16:12] VITALS: BP 110/70
[2019-01-14] MEDS: cloNIDine 0.2 MG TAB PO SCH (20:20)
[2019-01-14] MEDS: PRAZOSIN 1 MG CAP PO SCH (20:21)
[2019-01-14] MEDS: RAMELTEON 8 MG TAB (ROZEREM) PO SCH (21:22)
[2019-01-15] MEDS: VANCOMYCIN ORAL SOL 250MG/5ML ORAL SYRINGE PO SCH ×4 (00:15→18:29)
[2019-01-15] MEDS: NEOSPORIN TOP OINT 15GM TOP PRN (06:28)
[2019-01-15] MEDS: cloNIDine 0.1 MG TAB PO PRN ×3 (06:29→17:39)
[2019-01-15] MEDS: ACETAMINOPHEN TAB 650MG DOSE (2X325MG) PO PRN ×3 (06:30→20:30)
[2019-01-15 06:32] VITALS: BP 124/82
[2019-01-15] MEDS: buPROPion **XL** TABLET 150MG (WELLBUTRIN XL) PO SCH (08:09)
[2019-01-15] MEDS: FLUCONAZOLE 100 MG TAB PO SCH (08:09)
[2019-01-15] MEDS: FOLIC ACID 1 MG TAB PO SCH (08:09)
[2019-01-15] MEDS: MULTIVITAMINS/MINERALS THERAP 1 TAB PO SCH (08:09)
[2019-01-15] MEDS: NORETHINDRONE ETHINYL ESTRADIOL PO SCH (08:09)
[2019-01-15] MEDS: NICOTINE 21MG/24HR 1 EA TRANSDERMAL TD SCH (08:11)
--- NOTE | 2019-01-15 10:59 | MHIPNPDOC ---
[facility] Progress Note Progress Note Inpatient Progress Note Princess De La Rosa MRN: N/A Date of : N/A Date of Service: 01/15/2019 History of Present Illness The patient, a 33-year-old woman, who recently was discharged from my addiction clinic where she was treated for alcoholism, presents after a significant overdose. The patient reports that she became increasingly depressed, stopped her Paxil and felt worse and after her boyfriend left for a week to go to a hunting trip she became increasingly depressed, relapsed on alcohol after she'd run out of disulfiram and began to contemplate suicide. She reports cutting her wrists and taking an overdose of trazodone in an attempt to kill herself. Interval History The patient was met with today. she reports she is doing somewhat better on the medications, although she does note having insomnia and headaches since starting the Wellbutrin. Discussed with patient about discontinuing Wellbutrin and starting pramipexole. The patient was explained the risks, benefits, potential side effects of pramipexole as well as its use, alternative to the serotonin drugs to the risk of serotonin storm. The patient has been doing well, although at times she can be somewhat critical of the staff. She overall appears to be doing well without any major behavioral outbursts. She has been attending groups consistently. Discussed with patient about need for housing and that the unlikelihood of [facility] assisting her due to having a job and current funds in her account. Patient will be observed further for final disposition. She has been scoring low on her CIWA and they will be allowed to continue until it expires. Review Of Systems General: Denies fevers at this time. Denies appetite changes Cardiovascular: Denies Chest pain or palpitations GI: Denies diarrhea, constipation, vomiting or GI upset since stop of Paxil Respiratory: Denies shortness of breath or cough Neuro: Admits to mild tremors when anxious, denies dizziness Derm: Denies any rashes or pruritus : Denies any dysuria or urinary problems MSK: Denies any muscle tightness or stiffness HEENT: Denies any vision changes or headaches Heme/Lymph: denies any bruising or bleeding Endo: denies any cold/heat intolerance or water intake changes Psychotherapy None on this visit. Vital Signs Reviewed. Mental Status Examination General: Well dressed with good hygiene Speech: Spontaneous and fluid Thought processes: Linear and logical MSK: No notable tremor. No gait problems observed Thought content: More future oriented Abstract reasoning, and computation: Intact Description of associations: Intact Description of abnormal or psychotic thoughts: Denies suicidal thoughts at this time, denies homicidal. Denies auditory or visual hallucinations. Does not appear to be responding to internal stimuli. Judgment: fair Insight: fair Orientation: Alert and orientated 3 Cognition: Grossly normal Recent and remote memory: Intact Attention span and concentration: Intact Fund of knowledge: Adequate Mood: "okay" Affect: More euthymic with a pedro range Diagnoses Unspecified depressive disorder. Alcohol use disorder, severe Tobacco use disorder, severe. Assessment and Plan Unspecified depressive disorder: Continue Rozerem 8 mg daily. Start pramipexole 0.125 mg nightly, increase prazosin to 2 mg nightly. Discontinue Wellbutrin. Alcohol use disorder: Will allow [facility] protocol to Depakote appeared effective, no side effects noted. Tobacco use disorder: Continue nicotine replacement. Disposition The patient will be observed further and a safe discharge is undertaken. Housing is a major issue for the patient and thus plan for discharge on Friday once safe discharge is able to be created due to the holiday schedule. Time Spent 15 minutes. Friday Vital Signs Vital Signs Date Time Temp Pulse Resp B/P (MAP) Pulse Ox O2 Delivery O2 Flow Rate FiO2 01/15/19 06:32 97.6 86 18 124/82 (96) 01/13/19 17:08 99 Room Air Current Medications Current Medications Medications (Trade) Dose Ordered Sig/Nette Route PRN Reason Start Time Stop Time Status Last Admin Dose Admin Acetaminophen (Tylenol Tab) 650 mg Q6HP PRN PO PAIN / FEVER 01/10/19 11:45 01/15/19 06:30 Bupropion HCl (Wellbutrin Xl) 150 mg DAILY PO 01/13/19 09:00 01/15/19 08:09 Calcium Carbonate (Oscal) 500 mg BID PO 01/09/19 21:00 01/10/19 10:19 DC 01/09/19 21:32 Calcium Carbonate (Oscal) 500 mg BID@1200,1900 PO 01/10/19 12:00 01/14/19 18:19 Clonidine HCl (Catapres) 0.1 mg BIDP PRN PO ANXIETY 01/09/19 21:00 01/14/19 13:46 DC 01/14/19 06:25 Clonidine HCl (Catapres) 0.1 mg TIDP PRN PO anxiety/agitation 01/14/19 13:45 01/15/19 06:29 Clonidine HCl (Catapres) 0.2 mg QHS PO 01/09/19 21:00 01/14/19 20:20 Fluconazole (Diflucan) 100 mg DAILY PO 01/09/19 09:00 01/15/19 08:09 Folic Acid (Folic Acid) 1 mg DAILY PO 01/09/19 09:00 01/15/19 08:09 Lorazepam (Ativan) 2 mg ASDIRECTED PRN PO SEE PROTOCOL 01/08/19 17:30 01/13/19 15:27 Miscellaneous (Unresolved Clarification Entry) SEE LABEL COMMENTS DAILY XX 01/14/19 09:00 01/15/19 07:24 DC Miscellaneous (Unresolved Clarification Entry) SEE LABEL COMMENTS DAILY XX 01/15/19 09:00 01/15/19 09:11 DC Miscellaneous (Unresolved Clarification Entry) SEE LABEL COMMENTS DAILY XX 01/15/19 09:00 Miscellaneous (Unresolved Patient Own Med Order) SEE LABEL COMMENTS DAILY XX 01/09/19 09:00 01/09/19 17:32 DC Multivitamins (Theragram-M) 1 tab DAILY PO 01/09/19 09:00 01/09/19 16:07 DC 01/09/19 08:26 Multivitamins (Theragram-M) 2 tab DAILY PO 01/10/19 09:00 01/15/19 08:09 Neomycin/ Polymyxin/ Bacitracin (Neosporin) apply to right wr... BID PRN TOP laceration irritation 01/09/19 16:00 01/15/19 06:28 Nicotine (Nicoderm Cq 14mg) 1 patch DAILY TD 01/09/19 11:15 01/09/19 11:29 DC Nicotine (Nicoderm Cq 21mg) 1 patch DAILY TD 01/09/19 11:30 01/15/19 08:11 Ondansetron HCl (Zofran) 4 mg Q6HP PRN PO NAUSEA OR VOMITING 01/08/19 19:00 Paroxetine HCl (PAXil) 30 mg DAILY PO 01/10/19 09:00 01/11/19 16:10 DC 01/11/19 08:19 Patient Own Medication (Patient'S Own Med) norethindrone-ethinYL estradiol (... DAILY PO 01/10/19 09:00 01/15/19 08:09 Prazosin HCl (Minipress) 1 mg QHS PO 01/12/19 21:00 01/14/19 20:21 Ramelteon (Rozerem) 8 mg QHS PO 01/11/19 21:00 01/14/19 21:22 Thiamine HCl (Thiamine HCl) 100 mg BID PO 01/08/19 21:00 01/11/19 20:59 DC 01/11/19 08:20 Trazodone HCl (Desyrel) 50 mg QHSP PRN PO INSOMNIA 01/09/19 18:00 01/09/19 20:14 DC Trazodone HCl (Desyrel) 150 mg QHSP PRN PO INSOMNIA 01/09/19 20:15 01/11/19 16:10 DC 01/10/19 21:32 Vancomycin HCl (First-Vancomycin 50(Firvanq)- 250mg/5ml) 125 mg Q6H PO 01/08/19 18:30 01/15/19 06:23 Allergies Coded Allergies: Influenza Virus Vaccines (Verified Allergy, Unknown, 09/28/18) Sulfa (Sulfonamide Antibiotics) (Verified Allergy, Unknown, 09/28/18) sertraline (Verified Adverse Reaction, Severe, suicidal ideation and nightmares, 01/08/19) oseltamivir (Verified Adverse Reaction, Intermediate, liver failure, 01/05/19) NSAIDS (Non-Steroidal Anti-Inflamma (Verified Adverse Reaction, Mild, gastric bypass, 09/28/18) RAJINDER ARRIAGA DO Jan 15, 2019 10:59
[2019-01-15] MEDS: OYSTER SHELL CALCIUM 500 MG TAB PO SCH ×2 (12:35→18:28)
[2019-01-15 16:40] VITALS: BP 100/79
[2019-01-15] MEDS: PRAZOSIN 1 MG CAP PO SCH (20:29)
[2019-01-15] MEDS: cloNIDine 0.2 MG TAB PO SCH (20:30)
[2019-01-15] MEDS ORDERED: PRAMIPEXOLE (MIRAPEX) 0.125 MG TAB PO SCH (21:00)
[2019-01-15] MEDS: RAMELTEON 8 MG TAB (ROZEREM) PO SCH (21:11)
[2019-01-16] MEDS: VANCOMYCIN ORAL SOL 250MG/5ML ORAL SYRINGE PO SCH ×4 (05:30→18:06)
[2019-01-16 05:47] VITALS: BP 115/60
[2019-01-16] MEDS: MULTIVITAMINS/MINERALS THERAP 1 TAB PO SCH (08:25)
[2019-01-16] MEDS: FOLIC ACID 1 MG TAB PO SCH (08:26)
[2019-01-16] MEDS: NICOTINE 21MG/24HR 1 EA TRANSDERMAL TD SCH (08:27)
[2019-01-16] MEDS: NORETHINDRONE ETHINYL ESTRADIOL PO SCH (08:28)
[2019-01-16] MEDS: FLUCONAZOLE 100 MG TAB PO SCH (08:31)
[2019-01-16 09:18] VITALS: BP 110/81
[2019-01-16] MEDS: cloNIDine 0.1 MG TAB PO PRN (12:21)
[2019-01-16] MEDS: OYSTER SHELL CALCIUM 500 MG TAB PO SCH ×2 (12:21→18:05)
[2019-01-16 16:16] VITALS: BP 114/76
[2019-01-16] MEDS: ACETAMINOPHEN TAB 650MG DOSE (2X325MG) PO PRN (18:06)
[2019-01-16] MEDS: cloNIDine 0.2 MG TAB PO SCH (20:04)
[2019-01-16] MEDS: PRAZOSIN 1 MG CAP PO SCH (20:04)
[2019-01-16] MEDS ORDERED: zolPIDEM TARTRATE 5 MG TAB PO ONE (21:00)
[2019-01-16] MEDS: RAMELTEON 8 MG TAB (ROZEREM) PO SCH (21:50)
[2019-01-17] MEDS: VANCOMYCIN ORAL SOL 250MG/5ML ORAL SYRINGE PO SCH ×4 (00:30→17:55)
[2019-01-17 06:02] VITALS: BP 117/69
[2019-01-17] MEDS: NORETHINDRONE ETHINYL ESTRADIOL PO SCH (08:22)
[2019-01-17] MEDS: ACETAMINOPHEN TAB 650MG DOSE (2X325MG) PO PRN ×2 (08:23→17:08)
[2019-01-17] MEDS: cloNIDine 0.1 MG TAB PO PRN ×2 (08:23→15:06)
[2019-01-17] MEDS: FOLIC ACID 1 MG TAB PO SCH (08:23)
[2019-01-17] MEDS: MULTIVITAMINS/MINERALS THERAP 1 TAB PO SCH (08:23)
[2019-01-17] MEDS: NICOTINE 21MG/24HR 1 EA TRANSDERMAL TD SCH (08:24)
[2019-01-17] MEDS: OYSTER SHELL CALCIUM 500 MG TAB PO SCH ×2 (12:01→18:19)
[2019-01-17 15:37] VITALS: BP 121/83
[2019-01-17] MEDS: PRAZOSIN 1 MG CAP PO SCH (20:26)
[2019-01-17] MEDS: cloNIDine 0.2 MG TAB PO SCH (20:27)
[2019-01-17] MEDS: MIRTAZAPINE 15 MG TAB PO SCH ×2 (20:27→21:28)
[2019-01-18] MEDS: VANCOMYCIN ORAL SOL 250MG/5ML ORAL SYRINGE PO SCH ×3 (00:30→11:19)
[2019-01-18 06:23] VITALS: BP 115/53
[2019-01-18] MEDS: MULTIVITAMINS/MINERALS THERAP 1 TAB PO SCH (08:44)
[2019-01-18] MEDS: FOLIC ACID 1 MG TAB PO SCH (08:44)
[2019-01-18 08:45] VITALS: BP 123/77
[2019-01-18] MEDS: NICOTINE 21MG/24HR 1 EA TRANSDERMAL TD SCH (08:45)
[2019-01-18] MEDS: ACETAMINOPHEN TAB 650MG DOSE (2X325MG) PO PRN (08:45)
[2019-01-18] MEDS: cloNIDine 0.1 MG TAB PO PRN (08:45)
[2019-01-18] MEDS: NORETHINDRONE ETHINYL ESTRADIOL PO SCH (08:45)
[2019-01-18] MEDS ORDERED: REME15TA PO (10:38)
[2019-01-18] MEDS ORDERED: MINI1CAP PO (10:38)
[2019-01-18] MEDS ORDERED: CATA0.2T PO (10:38)
[2019-01-18] MEDS ORDERED: NICO21PAT TD (10:38)
[2019-01-18] MEDS ORDERED: DISU250T PO (10:38)
--- NOTE | 2019-01-18 10:42 | MHDSPDOC ---
[facility] Discharge Summary Discharge Summary DATE OF ADMISSION: Jan 08, 2019 at 14:37 DATE OF DISCHARGE: 01/18/19 Discharge Princess De La Rosa MRN: [id number] Date of : N/A Date of Service: 01/18/2019 Diagnoses Malingering. Borderline personality disorder. Alcohol use disorder, severe. Tobacco use disorder, severe. Major depression, recurrent, in remission. History of Present Illness The patient, a 33-year-old woman, who recently was discharged from my addiction clinic where she was treated for alcoholism, presents after a significant overdose. The patient reports that she became increasingly depressed, stopped her Paxil and felt worse and after her boyfriend left for a week to go to a hunting trip she became increasingly depressed, relapsed on alcohol after she'd run out of disulfiram and began to contemplate suicide. She reports cutting her wrists and taking an overdose of trazodone in an attempt to kill herself. Consultants Involved Hospitalist/PCP screening Treatment and Progress On The Unit The patient was admitted to the inpatient unit after her suicide attempt. She was subsequently discussed with about the risk for serotonin syndrome due to the potential serotonin syndrome she had had and the overdose on Paxil. She elected to try Wellbutrin with poor results causing headaches and insomnia. She was tried on Rozerem and Mirapex as off label depression treatment, but reported that she got itchiness and both were discontinued. She was subsequently tried on Remeron with good results. Over the time of her stay she made great improvement objectively where she engage was much more social and was notably pleasant on the unit, however, once we approached the first junction of discharge on the previous Friday, the patient became noticeably different where she was much more irritated that she would be discharged and she reported that she wished to stay until she was placed in transitional living services. She was allowed to stay further on a voluntary understanding over the weekend where she did demonstrate more behavioral problems being upset, irritable, short and difficult with the staff reportedly due to her discharge. On the day of discharge, the patient stated that she was "not ready" however, when asked she was not able to describe she stated that she did not get good sleep the previous night. When asked specifically if she had suicidal thoughts, she stated that she had had only "self-harm dreams" which were nonspecific and unusual. The patient appeared to be fairly interested in staying longer; however, she was not able to demonstrate any significant safety concerns. Her behavior although cantankerous, was not violent or aggressive in any manner. The patient was much more focused on staying and after she had complained to her parents they had requested to meet with me and I explained my thought process, it appears that there was a misunderstanding about the nature of our unit. The patient reported that she was on "no antidepressant" however, she was unable to counter this when note she was on Remeron placed over the weekend for sleep, which would be one of the few antidepressants available that would abide by her current once. The patient on the day of discharge was denying suicidal and homicidal ideation and had been denying it for several days prior and any speak of suicidal ideation only appeared as she approached any potential discharge, further increasing my suspicion of malingering, especially given her unstable housing situation. On the day of discharge, she did not meet criteria for further voluntary admission as her depression appeared to be in remission and objective findings showed that she had actually been doing quite well, attentive to groups and friendly with most of the other patients on the unit. A completion of her behaviors taken together in hindsight do appeared to suggest more borderline personality with adjustment. Discharge Assessment 33-year-old woman with likely adjustment with borderline personality versus borderline personality traits presents after suicide attempt after becoming severely intoxicated. She has a long history of alcohol addiction. She does very well objectively engaging and her subjective signs of her reactive depression improved; however, she continues to report subjective experiences that are greatly different than her objective findings. Every time she has approached with discharge she appears to state "she is not ready," however, despite my questioning on what factors, the only factors that can be elaborated are vague and nonspecific such as, "I didn't sleep well last night." It appears especially after consulting with the nursing staff and other staff, the patient has become much more dependent on the unit and appears to be manipulating the situation in order to continue on her unit, likely due to her housing situation of which she had neglected to act on for well over a week after informed. Mental Status Examination General: Well dressed with good hygiene Speech: Spontaneous and fluid Thought processes: Linear and logical MSK: Smooth and coordinated gait, no signs of tremors or involuntary orofacial movements Thought content: Mildly irritated Abstract reasoning, and computation: Intact Description of associations: Intact Description of abnormal or psychotic thoughts: Denies any suicidal or homicidal ideation. Denies any auditory or visual hallucinations. Does not appear to be responding to internal stimuli. Does not appear to be endorsing any bizarre or paranoid ideation. Judgment: Likely chronically limited Insight: Likely chronically limited Orientation: Alert and orientated 3 Cognition: Grossly normal Recent and remote memory: Intact Attention span and concentration: Intact Fund of knowledge: Adequate Mood: "okay" Affect: Euthymic with a full range Follow Up The social work team worked during the predischarge meeting in order to evaluate for further issues of lethality address them fully before discharge. They worked on safety planning with the patient's family members in order to ensure that the patient will have a safe and effective discharge. Time Spent The amount of time spent in the coordination of care for this patient was approximately 120 minutes. Friday Vital Signs/I&Os Vital Signs Date Time Temp Pulse Resp B/P (MAP) Pulse Ox O2 Delivery O2 Flow Rate FiO2 01/18/19 08:45 123/77 01/18/19 06:23 97.3 94 16 Room Air 01/13/19 17:08 99 Medications Scheduled Clonidine HCl (Clonidine HCl) 0.2 Mg Tablet, 0.2 MG PO QHS, (Reported) Clonidine HCl (Catapres) 0.2 Mg Tablet, 0.2 MG PO QHS for anxiety for 7 Days, #7 Disulfiram (Disulfiram) 250 Mg Tablet, 250 MG PO DAILY for alcohol for 7 Days, #7 Mirtazapine (Remeron) 15 Mg Tablet, 15 MG PO QHS for mood for 7 Days, #7 Nicotine (Nicotine Patch) 21 Mg Patch.td24, 1 PATCH TD DAILY for tobacco for 30 Days, #30 Norethindrone-Ethinyl Estrad (Pirmella 7-7-7-28 Tablet) 1 Each Tablet, 1 TAB PO DAILY, (Reported) Prazosin HCl (Minipress) 1 Mg Capsule, 2 MG PO QHS for minipress for 7 Days, #14 Scheduled PRN Acetaminophen (Acetaminophen) 325 Mg Tablet, 650 MG PO Q6H PRN for PAIN, (Reported) Allergies Coded Allergies: Influenza Virus Vaccines (Verified Allergy, Unknown, 09/28/18) Sulfa (Sulfonamide Antibiotics) (Verified Allergy, Unknown, 09/28/18) sertraline (Verified Adverse Reaction, Severe, suicidal ideation and nightmares, 01/08/19) oseltamivir (Verified Adverse Reaction, Intermediate, liver failure, 01/05/19) NSAIDS (Non-Steroidal Anti-Inflamma (Verified Adverse Reaction, Mild, gastric bypass, 09/28/18) RAJINDER ARRIAGA DO Jan 18, 2019 10:42
[2019-01-18] MEDS: OYSTER SHELL CALCIUM 500 MG TAB PO SCH (11:19)
== END 2019-01-18 13:05 | disposition home or self-care (01) | DRG 752 ==
LOC: M PSY 14:37
PROVIDERS: ADMIT Psychiatry & Neurology Addiction Medicine; ATTEND Psychiatry & Neurology Addiction Medicine
DX: F60.3 Borderline personality disorder (principal); B37.0 Candidal stomatitis; Z76.5 Malingerer [conscious simulation]; F11.20 Opioid dependence, uncomplicated; F33.40 Major depressive disorder, recurrent, in remission, unspecified; F43.10 Post-traumatic stress disorder, unspecified; F17.200 Nicotine dependence, unspecified, uncomplicated; F10.20 Alcohol dependence, uncomplicated; F40.10 Social phobia, unspecified; Z91.410 Personal history of adult physical and sexual abuse; Z98.84 Bariatric surgery status; Z62.810 Personal history of physical and sexual abuse in childhood; Z79.899 Other long term (current) drug therapy; Z88.2 Allergy status to sulfonamides; Z88.7 Allergy status to serum and vaccine; Z88.6 Allergy status to analgesic agent; Z88.8 Allergy status to other drugs, medicaments and biological substances

== ENCOUNTER → 2019-01-28 | Outpatient (CLI) | payer BC, OTHER ==
[~2019-01-28] MED LIST changes: +ANTA250T PO; +CALC-176 PO; +CATA0.2T PO; +MINI1CAP PO; +NICO21PAT TD; +PRAZ1CAP PO; +REME15TA PO; +VITMTA PO
[2019-01-28 06:47] LABS: BASO # 0.1 10^3/uL (0.0-0.2); BASO % 0.9 % (0.0-1.0); EOS # 0.2 10^3/uL (0.0-0.5); EOS % 2.9 % (0.0-3.0); HEMATOCRIT 38.3 % (36.0-47.0); HEMOGLOBIN 12.8 g/dl (12.0-15.5); LYMPH # 1.3 10^3/uL (1.5-5.0); LYMPH % 18.1 % (24.0-44.0); MEAN CORPUSCULAR HEMOGLOBIN 30.8 pg (27.0-33.0); MEAN CORPUSCULAR HGB CONC 33.4 g/dl (32.0-36.5); MEAN CORPUSCULAR VOLUME 92.1 fl (80.0-96.0); MONO # 0.5 10^3/uL (0.0-0.8); MONO % 7.2 % (0.0-5.0); NEUTROPHILS # 4.9 10^3/uL (1.5-8.5); NEUTROPHILS % 70.5 % (36.0-66.0); PLATELET COUNT, AUTOMATED 300 10^3/uL (150-450); RED BLOOD COUNT 4.16 10^6/uL (4.00-5.40)
[2019-01-28 07:19] LABS: ALBUMIN 3.6 GM/DL (3.2-5.2); ALT/SGPT 22 U/L (12-78); BILIRUBIN,TOTAL 0.6 MG/DL (0.2-1.0); BLOOD UREA NITROGEN 11 MG/DL (7-18); CALCIUM LEVEL 9.2 MG/DL (8.5-10.1); CARBON DIOXIDE LEVEL 28 MEQ/L (21-32); CHLORIDE LEVEL 108 MEQ/L (98-107); CHOLESTEROL LEVEL 150 MG/DL (<200); CHOLESTEROL RISK RATIO 1.851 (<5); FREE T4 1.11 NG/DL (0.76-1.46); GLOMERULAR FILTRATION RATE > 60.0 (>60); GLUCOSE, FASTING 91 MG/DL (70-100); HDL CHOLESTEROL 81 MG/DL (>40); LDL CHOLESTEROL 54 MG/DL (<100); NON-HDL-C 69 MG/DL; POTASSIUM SERUM 4.2 MEQ/L (3.5-5.1); SODIUM LEVEL 144 MEQ/L (136-145); TOTAL PROTEIN 6.6 GM/DL (6.4-8.2); TRIGLYCERIDES LEVEL 74 MG/DL (<150)
[2019-01-28 11:57] LABS: TOTAL 25(OH) VITAMIN D 32.8 NG/ML (30.0-100.0)
== END ==
LOC: M LAB 06:13
PROVIDERS: ATTEND Physician Assistant Medical
DX: R53.83 Other fatigue (principal)

== ENCOUNTER 2019-03-01 12:40 | Emergency (ER) | payer BC, OTHER ==
[~2019-03-01] VITALS: Ht 162.6 cm; Wt 70.5 kg
[~2019-03-01 12:40] MED LIST changes: -ANTA250T PO; -CALC-176 PO; -PRAZ1CAP PO; -VITMTA PO
[2019-03-01 13:23] LABS: BASO # 0.1 10^3/uL (0.0-0.2); BASO % 0.6 % (0.0-1.0); EOS % 0.2 % (0.0-3.0); HEMOGLOBIN 16.5 g/dl (12.0-15.5); LYMPH # 1.2 10^3/uL (1.5-5.0); LYMPH % 12.1 % (24.0-44.0); MEAN CORPUSCULAR HEMOGLOBIN 29.8 pg (27.0-33.0); MEAN CORPUSCULAR HGB CONC 34.4 g/dl (32.0-36.5); MEAN CORPUSCULAR VOLUME 86.8 fl (80.0-96.0); MONO # 0.9 10^3/uL (0.0-0.8); NEUTROPHILS # 7.9 10^3/uL (1.5-8.5); NEUTROPHILS % 77.7 % (36.0-66.0); PLATELET COUNT, AUTOMATED 402 10^3/uL (150-450); RED BLOOD COUNT 5.53 10^6/uL (4.00-5.40); WHITE BLOOD COUNT 10.2 10^3/uL (4.0-10.0)
[2019-03-01] MEDS ORDERED: LORazepam 2 MG TAB PO PRN (13:30)
[2019-03-01] MEDS ORDERED: NS 1,000 ML IV ONE (13:30)
[2019-03-01 13:58] LABS: ALBUMIN 3.9 GM/DL (3.2-5.2); ALT/SGPT 25 U/L (12-78); BILIRUBIN,DIRECT 0.3 MG/DL (0.0-0.2); BILIRUBIN,TOTAL 0.9 MG/DL (0.2-1.0); CPK CREATINE PHOSPHOKINASE 68 U/L (26-192); SALICYLATE LEVEL < 1.7 MG/DL (5.0-30.0); THYROID STIMULATING HORMONE 0.977 uIU/ML (0.358-3.740); TOTAL PROTEIN 7.8 GM/DL (6.4-8.2)
[2019-03-01 13:59] LABS: ACETAMINOPHEN LEVEL < 2.0 UG/ML (10.0-30.0)
[2019-03-01] MEDS ORDERED: THIAMINE 100 MG TAB PO SCH (15:00)
[2019-03-01] MEDS ORDERED: FOLIC ACID 1 MG TAB PO SCH (15:00)
[2019-03-01] MEDS ORDERED: MULTIVITAMINS/MINERALS THERAP 1 TAB PO SCH (15:00)
[2019-03-01 15:43] LABS: AMPHETAMINES LEVEL URINE NEGATIVE (NEGATIVE); BARBITURATES URINE NEGATIVE (NEGATIVE); BENZODIAZEPINES URINE NEGATIVE (NEGATIVE); CANNABINOIDS URINE NEGATIVE (NEGATIVE); COCAINE METABOLITE URINE NEGATIVE (NEGATIVE); METHADONE URINE NEGATIVE (NEGATIVE); OPIATES URINE NEGATIVE (NEGATIVE); PHENCYCLIDINE URINE NEGATIVE (NEGATIVE)
[2019-03-01 17:44] VITALS: BP 130/75
--- NOTE | 2019-03-01 19:57 | ECGEPIP ---
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
[2019-03-01] MEDS ORDERED: PRAZ1CAP PO (21:58)
[2019-03-01] MEDS ORDERED: CALC-176 PO (21:58)
[2019-03-01] MEDS ORDERED: ANTA250T PO (21:58)
[2019-03-01] MEDS ORDERED: VITMTA PO (21:58)
[2019-03-01] MEDS ORDERED: REME15TA PO (21:58)
== END 2019-03-01 18:40 | disposition home or self-care (01) ==
LOC: EDBD 12:40 → M ED 12:40
DX: E86.0 Dehydration (principal); F10.229 Alcohol dependence with intoxication, unspecified; F33.9 Major depressive disorder, recurrent, unspecified; F43.10 Post-traumatic stress disorder, unspecified; Z79.899 Other long term (current) drug therapy; Z88.1 Allergy status to other antibiotic agents; Z88.2 Allergy status to sulfonamides; Z88.7 Allergy status to serum and vaccine; Z88.8 Allergy status to other drugs, medicaments and biological substances; F17.210 Nicotine dependence, cigarettes, uncomplicated
CPT/HCPCS: 80047; 80076; 80307; 82550; 84443; 84702; 85025; 93005; 93041; 96360; 99285; G0480

== ENCOUNTER 2020-10-17 13:42 | Emergency (ER) | payer BC, OTHER ==
[~2020-10-17] VITALS: Ht 160 cm; Wt 55.6 kg
[~2020-10-17 13:42] MED LIST changes: +ANTA250T PO; +CALC-176 PO; +MIRT-62 PO; +PRAZ1CAP PO; -REME15TA PO; +VITMTA PO
[2020-10-17] MEDS ORDERED: PRAZ2CAP PO ×2 (14:47→17:18)
[2020-10-17] MEDS ORDERED: METH10CO PO (15:31)
--- NOTE | 2020-10-17 15:58 | ECGEPIP ---
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
[2020-10-17 16:30] VITALS: BP 150/96
[2020-10-17 16:42] LABS: AMPHETAMINES LEVEL URINE POSITIVE (NEGATIVE); BARBITURATES URINE NEGATIVE (NEGATIVE); BENZODIAZEPINES URINE NEGATIVE (NEGATIVE); CANNABINOIDS URINE POSITIVE (NEGATIVE); COCAINE METABOLITE URINE NEGATIVE (NEGATIVE); METHADONE URINE POSITIVE (NEGATIVE); OPIATES URINE NEGATIVE (NEGATIVE); PHENCYCLIDINE URINE NEGATIVE (NEGATIVE)
[2020-10-17 16:56] LABS: BASO # 0.1 10^3/uL (0.0-0.2); BASO % 1.2 % (0.0-1.0); EOS # 0.2 10^3/uL (0.0-0.5); EOS % 2.4 % (0.0-3.0); HEMATOCRIT 37.1 % (36.0-47.0); HEMOGLOBIN 12.7 g/dl (12.0-15.5); LYMPH % 30.1 % (24.0-44.0); MEAN CORPUSCULAR HEMOGLOBIN 29.7 pg (27.0-33.0); MEAN CORPUSCULAR HGB CONC 34.2 g/dl (32.0-36.5); MEAN CORPUSCULAR VOLUME 86.7 fl (80.0-96.0); MONO # 0.5 10^3/uL (0.0-0.8); MONO % 7.7 % (2.0-8.0); NEUTROPHILS # 3.9 10^3/uL (1.5-8.5); NEUTROPHILS % 58.1 % (36.0-66.0); PLATELET COUNT, AUTOMATED 274 10^3/uL (150-450); RED BLOOD COUNT 4.28 10^6/uL (4.00-5.40); WHITE BLOOD COUNT 6.7 10^3/uL (4.0-10.0)
[2020-10-17] MEDS ORDERED: PRAZ1CAP PO (17:18)
[2020-10-17] MEDS ORDERED: HYDR-3363 PO (17:18)
[2020-10-17] MEDS ORDERED: CITA20TA6 PO (17:18)
[2020-10-17] MEDS ORDERED: DISU250T PO (17:18)
[2020-10-17] MEDS ORDERED: CLON-412 PO (17:18)
[2020-10-17] MEDS ORDERED: HOME MED LIST COMPLETE! XX SCH (17:20)
[2020-10-17 17:22] LABS: HCG, SERUM QUALITATIVE NEGATIVE (NEGATIVE)
[2020-10-17 17:54] LABS: ACETAMINOPHEN LEVEL 4.4 UG/ML (10.0-30.0); ALBUMIN 3.6 GM/DL (3.2-5.2); ALT/SGPT 51 U/L (12-78); BILIRUBIN,DIRECT 0.2 MG/DL (0.0-0.2); BILIRUBIN,TOTAL 0.6 MG/DL (0.2-1.0); BLOOD UREA NITROGEN 25 MG/DL (7-18); CALCIUM LEVEL 9.2 MG/DL (8.5-10.1); CARBON DIOXIDE LEVEL 28 MEQ/L (21-32); CHLORIDE LEVEL 107 MEQ/L (98-107); CK-MB VALUE MASS 14.5 NG/ML (<3.6); CPK CREATINE PHOSPHOKINASE 1476 U/L (26-192); CREATININE FOR GFR 1.06 MG/DL (0.55-1.30); ETHYL ALCOHOL (ETHANOL) < 0.003 % (0.000-0.010); FREE T4 1.14 NG/DL (0.76-1.46); GLOMERULAR FILTRATION RATE > 60.0 (>60); GLUCOSE, FASTING 82 MG/DL (70-100); LIPASE 822 U/L (73-393); MB/CK RELATIVE INDEX 0.98 (< OR =4); POTASSIUM SERUM 4.2 MEQ/L (3.5-5.1); SALICYLATE LEVEL < 1.7 MG/DL (5.0-30.0); SODIUM LEVEL 139 MEQ/L (136-145); THYROID STIMULATING HORMONE 0.628 uIU/ML (0.358-3.740); TOTAL PROTEIN 6.7 GM/DL (6.4-8.2); TROPONIN I < 0.02 NG/ML (< 0.10)
[2020-10-17] MEDS ORDERED: METHADONE 10 MG TAB (S0109) PO ONE (18:10)
[2020-10-17] MEDS ORDERED: NS 1,000 ML IV SCH (18:15)
[2020-10-17] MEDS ORDERED: ISOVUE-370 76% 100ML VIAL As Ordered ONE (18:26)
== END 2020-10-17 18:30 | disposition left against medical advice (07) ==
LOC: M ED 13:42
DX: F11.20 Opioid dependence, uncomplicated (principal); R07.9 Chest pain, unspecified; R11.2 Nausea with vomiting, unspecified; R19.7 Diarrhea, unspecified; Z53.9 Procedure and treatment not carried out, unspecified reason; F10.10 Alcohol abuse, uncomplicated; F43.10 Post-traumatic stress disorder, unspecified; Z87.891 Personal history of nicotine dependence; Z88.2 Allergy status to sulfonamides; Z88.6 Allergy status to analgesic agent; Z88.7 Allergy status to serum and vaccine; Z79.899 Other long term (current) drug therapy